=== PATIENT | male | born 1955 | race Asian ===

== ENCOUNTER → 2024-06-18 | Outpatient (CLI) | payer OTHER, SELFPAY ==
[2024-06-18 08:52] LABS: Glucose Estimated Average 186 mg/dL (80-131); Hemoglobin A1C 8.1 % Hgb (4.8-6.0)
[2024-06-18 08:56] LABS: Alanine Aminotransferase 69 U/L (10-49); Albumin, Serum 4.8 gm/dL (3.4-4.8); Albumin/Globulin Ratio 1.9 (1.2-2.2); Alkaline Phosphatase 64 U/L (46-116); Anion Gap 9 (7-16); Aspartate Amino Transferase 29 U/L (0-34); BUN/Creatinine Ratio 18 Ratio (12-20); Bilirubin,Total 0.7 mg/dL (0.3-1.2); Blood Urea Nitrogen 18 mg/dL (9-23); Calcium 9.8 mg/dL (8.3-10.6); Calcium (Corrected) 9.8 mg/dL (8.5-10.1); Carbon Dioxide 25.9 mMol/L (20.0-31.0); Cardiac Risk Estimate 2.1 RATIO (4.0-6.7); Chloride 102 mMol/L (98-107); Cholesterol 61 mg/dL (132-200); Globulin 2.5 gm/dL (2.3-3.5); Glucose 101 mg/dL (74-106); HDL Cholesterol 29 mg/dL (40-60); LDL Cholesterol,Calculated 3 mg/dL (0-130); Osmolality,Calculated 275 (275-295); Potassium 4.1 mMol/L (3.4-5.1); Sodium 137 mMol/L (136-145); Total Protein 7.3 gm/dL (5.7-8.2); Triglycerides 144 mg/dL (30-150); Uric Acid 6.1 mg/dL (3.7-9.2); eGFR > 60 See Note
== END | disposition home or self-care (01) ==
PROVIDERS: PCP Family Medicine; Referring Provider Family Medicine; Visit Provider Family Medicine
DX: E11.59 Type 2 diabetes mellitus with other circulatory complications (principal); E78.2 Mixed hyperlipidemia; E79.0 Hyperuricemia without signs of inflammatory arthritis and tophaceous disease; I10 Essential (primary) hypertension
CPT/HCPCS: 36415; 80053; 80061; 83036; 84550

== ENCOUNTER → 2024-11-27 | Outpatient (CLI) | payer OTHER, SELFPAY ==
[2024-11-27 09:05] LABS: Collection Type, Urine Clean Catch; Squamous Epithelial Cell,Urine 0 /hpf (0-5)
[2024-11-27 09:37] LABS: Basophils # (Auto) 0.1 Thou/mm3 (0.0-0.2); Basophils % (Auto) 1 % (0-2.5); Eosinophils # (Auto) 0.8 Thou/mm3 (0.0-0.5); Eosinophils % (Auto) 11 % (0-10); Hematocrit 45.9 % (41.0-53.0); Hemoglobin 15.5 g/dL (13.5-16.0); Immature Granulocytes % (Auto) 1 % (0-0); Immature Granulocytes Auto 0.06 Thou/mm3 (0.00-0.00); Lymphocytes % (Auto) 28 % (10-50); Mean Corpuscular HGB Conc 33.8 g/dl (31.0-37.0); Mean Corpuscular Hemoglobin 28.8 pg (25.0-35.0); Mean Corpuscular Volume 85 fL (80-100); Monocytes # (Auto) 0.6 Thou/mm3 (0.0-0.8); Monocytes % (Auto) 8 % (0-12); Neutrophils # (Auto) 3.6 Thou/mm3 (1.8-7.7); Neutrophils % (Auto) 50 % (37-80); Nucleated Red Blood Cell % 0 /100 WBC (0); Platelet Count 286 Thou/mm3 (140-440); RDW Standard Deviation 43.4 fL (35.1-43.9); Red Blood Count 5.38 Miln/mm3 (4.50-5.90); White Blood Count 7.1 Thou/mm3 (3.8-10.6)
[2024-11-27 09:55] LABS: Creatinine MALB Rnd Ur 67 mg/dL (30-125); Microalbumin Creat Ratio 12 mg/gCrea (<30); Microalbumin, Random Urine 8 mg/L (0-300)
[2024-11-27 10:00] LABS: Glucose Estimated Average 166 mg/dL (80-131); Hemoglobin A1C 7.4 % Hgb (4.8-6.0)
[2024-11-27 10:02] LABS: Bilirubin,Urine Negative (Negative); Blood,Urine Negative (Negative); Clarity,Urine Clear (Clear/Hazy); Color,Urine Lt-Yellow (Lt Yel-Yel); Glucose, Urine 4+ (Negative); Ketones,Urine Negative (Negative); Leukocyte Esterase,Urine Negative (Negative); Nitrite,Urine Negative (Negative); PH,Urine 5.5 (5.0-7.0); Protein,Urine Negative (Neg - Trace); RBC,Urine 2 /hpf (0-3); Urobilinogen,Urine Negative mg/dL (0.0-1.0); WBC,Urine 1 /hpf (0-5)
[2024-11-27 10:09] LABS: Alanine Aminotransferase 51 U/L (10-49); Albumin, Serum 4.5 gm/dL (3.4-4.8); Albumin/Globulin Ratio 1.7 (1.2-2.2); Alkaline Phosphatase 53 U/L (46-116); Anion Gap 11 (7-16); Aspartate Amino Transferase 44 U/L (0-34); BUN/Creatinine Ratio 23 Ratio (12-20); Bilirubin,Total 0.5 mg/dL (0.3-1.2); Blood Urea Nitrogen 25 mg/dL (9-23); Cardiac Risk Estimate 2.1 RATIO (4.0-6.7); Chloride 104 mMol/L (98-107); Cholesterol 79 mg/dL (132-200); Creatinine (Component) 1.1 mg/dL (0.6-1.3); Globulin 2.7 gm/dL (2.3-3.5); Glucose 87 mg/dL (74-106); HDL Cholesterol 38 mg/dL (40-60); LDL Cholesterol,Calculated 20 mg/dL (0-130); Osmolality,Calculated 282 (275-295); Potassium 5.1 mMol/L (3.4-5.1); Sodium 140 mMol/L (136-145); Thyroid Stimulating Hormone 3.14 uIU/mL (0.55-4.78); Total Protein 7.2 gm/dL (5.7-8.2); Triglycerides 104 mg/dL (30-150); Uric Acid 4.4 mg/dL (3.7-9.2); eGFR > 60 See Note
== END | disposition home or self-care (01) ==
PROVIDERS: PCP Family Medicine; Referring Provider Family Medicine; Visit Provider Family Medicine
DX: Z00.00 Encounter for general adult medical examination without abnormal findings (principal); E11.65 Type 2 diabetes mellitus with hyperglycemia; I10 Essential (primary) hypertension; E78.2 Mixed hyperlipidemia; E79.0 Hyperuricemia without signs of inflammatory arthritis and tophaceous disease
CPT/HCPCS: 36415; 80053; 80061; 81001; 82043; 82570; 83036; 84443; 84550; 85025

== ENCOUNTER → 2024-12-18 | Outpatient (CLI) | payer OTHER, SELFPAY ==
--- NOTE | 2024-12-18 12:20 | XR_ITS ---
Examination: Bone densitometry Date and time of exam:December 18, 2024 1244 hours INDICATIONS: 69-year-old male with diagnosis age related osteoporosis Technique: Lumbar spine and hip total bone mineralization values of an calculated. Peak reference and age match control results have been displayed. Findings: Lumbar spine total bone mineralization is1.086 gm/cm2. This is 0.0 standard deviations at peak reference. This is 0.8 standard deviations above age-matched controls. Hip total bone mineralization is 0.959 gm/cm2 This is 0.7 standard deviations below peak reference. This is 0.1 standard deviations below age-matched controls Impression: There is normal mineralization based on lumbar spine measurements. There is osteopenia based on hip measurements Lumbar mineralization is increased 2.0% compared with August 2022 Hip mineralization is increased 2.4% compared with August 2022
== END | disposition home or self-care (01) ==
LOC: CDIM 12:11
PROVIDERS: PCP Family Medicine; Referring Provider Family Medicine; Visit Provider Family Medicine
DX: M85.88 Other specified disorders of bone density and structure, other site (principal); M81.0 Age-related osteoporosis without current pathological fracture
CPT/HCPCS: 77080

== ENCOUNTER → 2025-03-30 | Outpatient (CLI) | payer OTHER, SELFPAY ==
[2025-03-30 08:52] LABS: Glucose Estimated Average 177 mg/dL (80-131); Hemoglobin A1C 7.8 % Hgb (4.8-6.0)
[2025-03-30 09:06] LABS: Alanine Aminotransferase 39 U/L (10-49); Albumin, Serum 4.4 gm/dL (3.4-4.8); Albumin/Globulin Ratio 1.5 (1.2-2.2); Alkaline Phosphatase 51 U/L (46-116); Anion Gap 10 (7-16); Aspartate Amino Transferase 32 U/L (0-34); BUN/Creatinine Ratio 16 Ratio (12-20); Bilirubin,Total 0.7 mg/dL (0.3-1.2); Blood Urea Nitrogen 19 mg/dL (9-23); Calcium 10.0 mg/dL (8.3-10.6); Calcium (Corrected) 10.0 mg/dL (8.5-10.1); Carbon Dioxide 27.0 mMol/L (20.0-31.0); Cardiac Risk Estimate 2.3 RATIO (4.0-6.7); Chloride 102 mMol/L (98-107); Cholesterol 73 mg/dL (132-200); Creatinine (Component) 1.2 mg/dL (0.6-1.3); Globulin 2.9 gm/dL (2.3-3.5); Glucose 83 mg/dL (74-106); HDL Cholesterol 32 mg/dL (40-60); LDL Cholesterol,Calculated 13 mg/dL (0-130); Osmolality,Calculated 278 (275-295); Potassium 4.2 mMol/L (3.4-5.1); Sodium 139 mMol/L (136-145); Total Protein 7.3 gm/dL (5.7-8.2); Triglycerides 141 mg/dL (30-150); Uric Acid 4.9 mg/dL (3.7-9.2); eGFR > 60 See Note
== END | disposition home or self-care (01) ==
LOC: COPL 07:38
PROVIDERS: PCP Family Medicine; Referring Provider Family Medicine; Visit Provider Family Medicine
DX: E11.59 Type 2 diabetes mellitus with other circulatory complications (principal); E78.2 Mixed hyperlipidemia; I10 Essential (primary) hypertension; E79.0 Hyperuricemia without signs of inflammatory arthritis and tophaceous disease
CPT/HCPCS: 36415; 80053; 80061; 83036; 84550

== ENCOUNTER 2025-06-19 02:07 | Inpatient (IN) | payer OTHER, MEDICARE, SELFPAY ==
[2025-06-19] VITALS (8 sets, daily range): BP systolic 101–115; BP diastolic 53–72; PULSE 74–103; RESP 16–20; TEMP 36.3–37.1; O2SAT 95–98; BMI 25.8; BMI 26.9
--- NOTE | 2025-06-19 02:08 | PD.EDABDPN ---
ED Abdominal Pain RME/HPI General Chief Complaint: Abdominal Pain Stated complaint: ABDOMINAL PAIN Time seen by provider: 06/19/25 02:23 Arrival date/time: 06/19/25 02:07 RME / HPI RME / HPI narrative: See MDM for Dr. Santo's HPI documentation. Related Data Home Medications ?Medication ?Instructions ?Recorded ?Confirmed ascorbic acid (vitamin C) 1,000 mg 1,000 mg PO DAILY 09/22/20 06/19/25 tablet (Vitamin C) metformin 1,000 mg tablet 1,000 mg PO BID 09/22/20 06/19/25 sitagliptin phosphate 100 mg 100 mg PO HS 09/22/20 04/09/23 tablet (Januvia) atorvastatin 80 mg tablet 80 mg PO HS 10/27/20 06/19/25 insulin glargine 100 unit/mL 15 unit subcut QAM 10/27/20 06/19/25 subcutaneous solution (Lantus U-100 Insulin) alendronate 70 mg tablet 70 mg PO QWEEK 04/09/23 06/19/25 allopurinol 100 mg tablet 200 mg PO QDAY 04/09/23 06/19/25 hydroxyzine HCl 25 mg tablet 25 mg PO [id number] PRN Itching 04/09/23 06/19/25 loratadine 10 mg tablet 10 mg PO QDAY 04/09/23 06/19/25 acetaminophen 325 mg tablet 650 mg PO Q4H PRN pain 06/19/25 06/19/25 (Tylenol) calcium carb-ergocalciferol (vit 1 tab PO BID 06/19/25 06/19/25 D2) 600 mg calcium-200 unit tablet dapagliflozin propanediol 10 mg 10 mg PO DAILY 06/19/25 06/19/25 tablet (Farxiga) dulaglutide 1.5 mg/0.5 mL 1.5 mg subcut QWEEK 06/19/25 06/19/25 subcutaneous pen injector (Trulicity) insulin degludec 200 unit/mL (3 18 unit subcut DAILY 06/19/25 06/19/25 mL) subcutaneous pen (Tresiba FlexTouch U-200 insulin) pioglitazone 30 mg tablet 30 mg PO DAILY 06/19/25 06/19/25 rosuvastatin 40 mg tablet 40 mg PO HS 06/19/25 06/19/25 triamcinolone acetonide 0.5 % 1 applic topical BID 06/19/25 06/19/25 topical ointment Previous Rx's ?Medication ?Instructions ?Recorded apixaban 5 mg tablet (Eliquis) 5 mg PO BID #60 tabs 09/27/20 Allergies Allergy/AdvReac Type Severity Reaction Status Date / Time adhesive tape AdvReac Mild Rash Verified 06/19/25 02:14 latex AdvReac Mild Rash Verified 06/19/25 02:14 Review of Systems Review of Systems Systems Reviewed: All systems reviewed, normal except as documented ED Exam Narrative Physical exam: See MDM for Dr. Santo's physical exam documentation. Course Quality Measures none Orders Category Date Time Status COVID-19 Screening Questionnaire NOW Care 06/19/25 05:06 Active Decision to Admit X1 Care 06/19/25 05:06 Completed NPO NOW Care 06/19/25 05:04 Active Saline [Insert IV] NOW Care 06/19/25 02:13 Active Straight [In and Out Catheter] X1 Care 06/19/25 02:13 Completed Consult to General Surgery Stat Cons 06/19/25 05:03 Ordered Diet NPO (NOW) Diet 06/19/25 05:[address] abdomen pelvis wo con Stat Exams 06/19/25 02:14 Taken US gall bladder Stat Exams 06/19/25 02:14 Taken Amylase Stat Lab 06/19/25 02:24 Completed Bilirubin,Direct Stat Lab 06/19/25 02:24 Completed Blood Culture (Lab) Stat Lab 06/19/25 05:14 Ordered CBC Stat Lab 06/19/25 02:24 Completed CMP [Comprehensive Metabolic Panel] Stat Lab 06/19/25 02:24 Completed Hepatitis Acute Panel Stat Lab 06/19/25 04:09 Ordered Lipase Stat Lab 06/19/25 02:24 Completed Magnesium Stat Lab 06/19/25 02:24 Completed UA, C/S IF [Urinalysis, C/S if Indicated] Stat Lab 06/19/25 04:19 Completed Famotidine Inj [Pepcid Inj] Med 06/19/25 02:13 Discontinued 20 mg IVP X1 ONE Morphine* Inj Med 06/19/25 04:59 Discontinued 4 mg IV X1 ONE Ondansetron Inj [Zofran Inj] Med 06/19/25 02:13 Discontinued 4 mg IVP X1 ONE Pantoprazole Inj [Protonix Inj] Med 06/19/25 02:13 Discontinued 40 mg IVP X1 ONE Sodium Chloride 0.9% 1000 ml [Ns] 1,000 ml Med 06/19/25 02:13 Discontinued IV 999 mls/hr cefTRIAXone/D5w 1gm IV premix [Rocephin/D5w 1gm IV Med 06/19/25 05:04 Discontinued premix] 1 g in 50 ml IV X1 metroNIDAZOLE/NS 500 MG IVPB [Flagyl 500 mg IV] Med 06/19/25 05:04 Active 500 mg in 100 ml IV X1 Vital Signs Vital signs: Vital Signs Temperature 98.3 F 06/19/25 02:15 Pulse Rate 86 06/19/25 02:15 Respiratory Rate 18 06/19/25 02:15 Blood Pressure 102/53 L 06/19/25 02:15 Pulse Oximetry (%) 98 06/19/25 02:15 Oxygen Delivery Method Room Air 06/19/25 02:15 Abdominal Pain MDM MDM Narrative MDM Narrative:: This section includes all my notes and documentations, including HPI, PE, and ED course. Henrry Santo MD HPI: 70-year-old male with history of CVA with residual left-sided weakness BIBA from home with sudden epigastric pain x 1 hour [employer]. With severe nausea. Had appendectomy in the past. No fever. No urinary symptoms. No other complaints. ROS: All negative except as documented in HPI. Physical Exam: General: Alert and oriented. Appears uncomfortable. Eyes: Conjunctivae and lids clear. ENT: No nasal congestion. Neck: Supple. Heart: RRR. Lungs: No respiratory distress. Good air movement. No rhonchi, wheezing, rales. Abdomen: Soft with upper quadrant tenderness. Normal bowel sounds. No distension. No rebound or guarding. Back: No CVA tenderness. Skin: Warm and dry. Neuro: Alert and oriented X 3. I reviewed EMS notes. I reviewed all diagnostic test results. My review of the US gallbladder report is cholecystitis. My review of the CT abdomen pelvis report is cholecystitis. Blood/urine tests remarkable for WBC 12.3 and LFT elevation. At this point, diagnoses include: Acute cholecystitis Treatment here included: IVF Zofran 4 mg IV Pepcid 20 mg and Protonix 40 mg IV (prior to diagnostic test results) Morphine 4 mg IV Flagyl 500 mg IV Rocephin 1 g IV Some improvement noted. I discussed the case with our surgeon and hospitalist. About the presentation and exam and diagnostics and treatments here. And need of further care in the hospital. Will accept the patient. Henrry Santo MD Patient data External records reviewed:: [facility] previous records (Per chart review, patient was seen here on 06/26/23 for generalized weakness.) and EMS form Clinical information provided by:: patient and EMS Social determinants that could affect healthcare access:: none Patient has the following chronic illnesses:: CVA with residual left-sided weakness, DM, HTN, HLD How is presenting disease/condition affected by chronic disease/condition?: uneffected by Evaluation data The following diagnostics were reviewed and interpreted by me:: lab results and radiology exam(s) Lab and/or radiology exams considered but not ordered:: none Interpretation Summary: I reviewed all diagnostic test results. My review of the US gallbladder report is cholecystitis. My review of the CT abdomen pelvis report is cholecystitis. Blood/urine tests remarkable for WBC 12.3 and LFT elevation. Medications / Prescriptions Medications or Prescriptions considered but not ordered:: none Medication administrations:: Medication Administration History Metronidazole (Flagyl 500 Mg Iv) 500 mg in 100 mls @ 100 mls/hr IV X1 ONE Stop: 06/19/25 06:03 Last Admin: 06/19/25 05:25 Dose: 100 mls/hr Documented By: OTTO Discontinued Medications Famotidine (Famotidine Inj 10 Mg/Ml Vial 2 Ml) 20 mg IVP X1 ONE Stop: 06/19/25 02:14 Last Admin: 06/19/25 02:30 Dose: 20 mg Documented By: OTTO Sodium Chloride (Ns) 1,000 mls @ 999 mls/hr IV .Q1H1M ONE Stop: 06/19/25 03:13 Last Infusion: 06/19/25 05:07 Dose: Infused Documented By: Admin: 06/19/25 02:29 Dose: 999 mls/hr Documented By: OTTO Ceftriaxone Sodium/Dextrose (Rocephin/D5w 1gm Iv Premix) 1 g in 50 mls @ 100 mls/hr IV X1 ONE Stop: 06/19/25 05:33 Last Admin: 06/19/25 05:20 Dose: 100 mls/hr Documented By: EE Morphine Sulfate (Morphine Sulf Inj 4 Mg/Ml Vial) 4 mg IV X1 ONE Stop: 06/19/25 05:00 Last Admin: 06/19/25 05:20 Dose: 4 mg Documented By: EE Ondansetron HCl (Ondansetron Inj 2 Mg/Ml Inj 2 Ml) 4 mg IVP X1 ONE; Protocol Stop: 06/19/25 02:14 Last Admin: 06/19/25 02:30 Dose: 4 mg Documented By: EE Pantoprazole Sodium (Pantoprazole Inj 40 Mg Vial) 40 mg IVP X1 ONE Stop: 06/19/25 02:14 Last Admin: 06/19/25 02:30 Dose: 40 mg Documented By: EE Treatment here included: IVF Zofran 4 mg IV Pepcid 20 mg and Protonix 40 mg IV (prior to diagnostic test results) Morphine 4 mg IV Flagyl 500 mg IV Rocephin 1 g IV Consultations Consultation(s) initiated? (list below): Yes Consultation #1 (Physician, Specialty, Details): I discussed the case with our surgeon and hospitalist. About the presentation and exam and diagnostics and treatments here. And need of further care in the hospital. Will accept the patient. Diagnosis Differential diagnosis abdominal pain: calculus of kidney, constipation, diverticulitis, gastroenteritis, pancreatitis, small bowel obstruction and other (Biliary colic) Most likely diagnosis given after review of the tests above:: Acute cholecystitis Admission Indicated Admission indicated?: indicated Explain why admission is indicated or not indicated:: Acute cholecystitis Admission Request Was there a request for admission?: Yes Admission Attestation Admission request attestation: Discussed case with Hospitalist service regarding admission. Discussed patients ED course, exam findings, labs, and radiology results. Agreed to accept the patient for admission. Disposition Plan Disposition Plan: Admit Discharge Plan Plan Patient Disposition: Admit Acute Care w/in Hospital Prescriptions/Referrals Prescriptions/Med Rec: No Action Januvia 100 mg Tablet 100 mg PO HS metformin 1,000 mg Tablet 1,000 mg PO BID ascorbic acid (vitamin C) [Vitamin C] 1,000 mg Tablet 1,000 mg PO DAILY Eliquis 5 mg tablet 5 mg PO BID Qty: 60 0RF atorvastatin 80 mg Tablet 80 mg PO HS insulin glargine [Lantus U-100 Insulin] 100 unit/mL Solution 15 unit SUBCUT QAM hydroxyzine HCl 25 mg tablet 25 mg PO [id number] PRN (Reason: Itching) Patient Comments: TAKE 1 TABLET BY MOUTH EVERY 6 TO 8 HOURS FOR RASH/ITCHING loratadine 10 mg Tablet 10 mg PO QDAY alendronate 70 mg Tablet 70 mg PO QWEEK allopurinol 100 mg tablet 200 mg PO QDAY rosuvastatin 40 mg tablet 40 mg PO HS dapagliflozin propanediol [Farxiga] 10 mg tablet 10 mg PO DAILY Trulicity 1.5 mg/0.5 mL pen injector 1.5 mg SUBCUT QWEEK pioglitazone 30 mg tablet 30 mg PO DAILY triamcinolone acetonide 0.5 % ointment 1 applic TOPICAL BID Patient Comments: APPLY OINTMENT TOPICALLY TO AFFECTED AREA TWICE DAILY insulin degludec [Tresiba FlexTouch U-200] 200 unit/mL (3 mL) insulin pen 18 unit SUBCUT DAILY calcium carbonate-vitamin D2 600 mg calcium- 200 unit tablet 1 tab PO BID acetaminophen [Tylenol] 325 mg tablet 650 mg PO Q4H PRN (Reason: pain) Referrals: Sin [facility] MD [Primary Care Provider, Family Practice] - In 1 week Problem List Clinical Impression: Acute cholecystitis Patient/Caregiver Discharge Instructions Print Language: Serbian Stand Alone Forms: Catarina Award Info., Patient Portal Info Letter
--- NOTE | 2025-06-19 02:14 | XR_ITS ---
Examination: Abdomen sonogram, Limited Date and time of exam: June 19, 2025, 0401 hours INDICATIONS: Right upper abdominal pain beginning 10:30 p.m. last night. Technique: Real-time gorman scale transabdominal sonographic images of the upper abdomen obtained. Findings: Small gallstones Gallbladder wall is thickened 0.6 cm Common bile duct 0.4 cm Pancreatic head 2.7 cm Liver 16 cm fatty infiltration Normal hepatopetal portal venous flow Patent IVC IMPRESSION: Acute calculus cholecystitis
--- NOTE | 2025-06-19 02:14 | XR_ITS ---
Examination: CT abdomen and pelvis without contrast. Coronal 3-D reconstructions. Sagittal 2-D reconstructions. Date and time of exam: June 19, 2025, 1507 hours INDICATIONS: Epigastric pain beginning 1 day ago CTDI: vol (mGy): 14.3 DLP: (mGycm): 903 Technique: Axial images of the abdomen have been obtained, 3 mm slice thickness Intravenous contrast material has not been administered. Low dose protocols were performed. One or more of the following dose reduction techniques were used; automated exposure control, adjustment of the mA and/or KV according to patient size, use of iterative reconstruction technique. Findings: Bibasilar subsegmental atelectasis No focal liver or splenic lesions Gallstones Gallbladder wall appears thickened with pericholecystic inflammatory change No pancreatic or adrenal mass Mild renal scarring Small calcifications left kidney No hydronephrosis or ureteral calculi No pericecal inflammatory change Moderate stool in the rectosigmoid Transverse prostate dimension 4.7 cm Contracted urinary bladder Prominent osteopenia IMPRESSION: Cholelithiasis Recommend hepatobiliary sonography to confirm cholecystitis
[2025-06-19] MEDS: SODIUM CHLORIDE 0.9% 1000 ML 1,000 ML 999 ML IV (02:29)
[2025-06-19] MEDS: FAMOTIDINE INJ 10 MG/ML VIAL 2 ML 20 MG IVP (02:30)
[2025-06-19] MEDS: ONDANSETRON INJ 2 MG/ML INJ 2 ML 4 MG IVP (02:30)
[2025-06-19 03:51] LABS: Basophils # (Auto) 0.1 Thou/mm3 (0.0-0.2); Basophils % (Auto) 1 % (0-2.5); Eosinophils # (Auto) 0.4 Thou/mm3 (0.0-0.5); Eosinophils % (Auto) 3 % (0-10); Hematocrit 46.5 % (41.0-53.0); Hemoglobin 15.1 g/dL (13.5-16.0); Immature Granulocytes Auto 0.06 Thou/mm3 (0.00-0.00); Lymphocytes # (Auto) 2.6 Thou/mm3 (1.0-4.8); Lymphocytes % (Auto) 22 % (10-50); Mean Corpuscular HGB Conc 32.5 g/dl (31.0-37.0); Mean Corpuscular Hemoglobin 28.4 pg (25.0-35.0); Mean Corpuscular Volume 88 fL (80-100); Monocytes # (Auto) 0.9 Thou/mm3 (0.0-0.8); Monocytes % (Auto) 7 % (0-12); Neutrophils # (Auto) 8.2 Thou/mm3 (1.8-7.7); Neutrophils % (Auto) 67 % (37-80); Nucleated Red Blood Cell # 0.00 Thou/mm3 (0.00-0.00); Nucleated Red Blood Cell % 0 /100 WBC (0); Platelet Count 312 Thou/mm3 (140-440); RDW Standard Deviation 45.5 fL (35.1-43.9); Red Blood Count 5.31 Miln/mm3 (4.50-5.90); White Blood Count 12.3 Thou/mm3 (3.8-10.6)
[2025-06-19 04:03] LABS: Alanine Aminotransferase 489 U/L (10-49); Albumin, Serum 4.5 gm/dL (3.4-4.8); Albumin/Globulin Ratio 1.5 (1.2-2.2); Alkaline Phosphatase 159 U/L (46-116); Amylase 203 U/L (30-118); Anion Gap 14 (7-16); Aspartate Amino Transferase 234 U/L (0-34); BUN/Creatinine Ratio 11 Ratio (12-20); Bilirubin,Direct 0.3 mg/dL (0.0-0.3); Bilirubin,Total 0.6 mg/dL (0.3-1.2); Blood Urea Nitrogen 16 mg/dL (9-23); Calcium 9.5 mg/dL (8.3-10.6); Calcium (Corrected) 9.5 mg/dL (8.5-10.1); Carbon Dioxide 24.2 mMol/L (20.0-31.0); Chloride 103 mMol/L (98-107); Creatinine (Component) 1.5 mg/dL (0.6-1.3); Estimated Creatinine Clearance 45.8 mL/min (>60); Globulin 3.1 gm/dL (2.3-3.5); Glucose 217 mg/dL (74-106); Lipase 63 U/L (12-53); Magnesium 2.0 mg/dL (1.6-2.6); Osmolality,Calculated 289 (275-295); Potassium 4.5 mMol/L (3.4-5.1); Sodium 141 mMol/L (136-145); Total Protein 7.6 gm/dL (5.7-8.2); eGFR 50 See Note
--- NOTE | 2025-06-19 04:13 | PRELIM_ITS ---
CT scan of the abdomen and pelvis without intravenous contrast (axial sections with sagittal and coronal reformats) June 19, 2025 0307 hours Clinical History: Upper abdominal pain Comparison: None available at the time of this report. Findings: Bilateral lower lobes atelectasis. The liver, pancreas, spleen, kidneys and adrenals are unremarkable on this noncontrast study. Gallstones. Gallbladder wall thickening. Pericholecystic fat stranding. No evidence of bowel obstruction. No evidence of appendicitis. There is no mesenteric or retroperitoneal adenopathy. The urinary bladder is unremarkable. There is no free fluid or free air. Degenerative changes of the imaged portions of the spine. Chronic multilevel disc disease. No acute fractures. Vascular calcifications. Impression: Findings are highly suspicious for acute calculous cholecystitis. Report Electronically Signed By: Elpidio Fagan 06/19/2025 4:13:00 AM [EST]
[2025-06-19 04:48] LABS: Collection Type, Urine Clean Catch
[2025-06-19 05:03] LABS: Bilirubin,Urine Negative (Negative); Blood,Urine Negative (Negative); Clarity,Urine Clear (Clear/Hazy); Color,Urine Lt-Yellow (Lt Yel-Yel); Culture Indicated,Urine Not Indicated; Glucose, Urine 4+ (Negative); Ketones,Urine Trace (Negative); Leukocyte Esterase,Urine Negative (Negative); Nitrite,Urine Negative (Negative); PH,Urine 6.0 (5.0-7.0); Protein,Urine Trace (Neg - Trace); RBC,Urine 1 /hpf (0-3); Specific Gravity,Urine 1.027 (1.001-1.035); Squamous Epithelial Cell,Urine < 1 /hpf (0-5); Urobilinogen,Urine Negative mg/dL (0.0-1.0); WBC,Urine 1 /hpf (0-5)
[2025-06-19] MEDS: cefTRIAXone/D5w 1gm IV premix 1 G/50 ML BAG IV (05:20)
[2025-06-19] MEDS: MORPHINE SULF INJ 4 MG/ML VIAL IV (05:20)
[2025-06-19] MEDS: metroNIDAZOLE/NS 500 MG IVPB 500 MG/100 ML BAG 100 MG IV (05:25)
--- NOTE | 2025-06-19 05:26 | PRELIM_ITS ---
Gallbladder ultrasound. June 19, 2025 0401 hours Clinical history: Right upper quadrant tenderness. Comparison: Correlated with the prior CT study dated June 19, 2025. Findings: The visualized liver is increased in echogenicity without mass or ductal dilatation. Liver is enlarged measuring 16 cm. Left lobe of liver is not well visualized due to bowel gas. A few possible tiny calculi are noted within the gallbladder neck, with gallbladder wall thickening measuring 6 mm and no p ericholecystic fluid. The common duct is normal in caliber at 4 mm. No free fluid is demonstrated on the submitted images. Impression: Findings consistent with acute cholecystitis. Hepatomegaly with fatty liver. Report Electronically Signed By: Gustavo Tolliver 06/19/2025 5:25:56 AM [EST]
--- NOTE | 2025-06-19 05:57 | ESHP_ITS ---
Documentation for date of: 06/19/25 [facility] History of Present Illness History of present illness: HPI: 70-year-old male with past medical history of hypertension, hyperlipidemia, embolic stroke with left-sided residual weakness in 2020, left atrial appendage thrombus, and PFO presented to the ED in the plate cleaner of 06/19/2025 with chief complaint of midepigastric and right upper quadrant pain. Started around 11 PM the night before after the patient ate dinner and he described it as constant pressure and aching. The pain is not radiating and he denied nausea vomiting or diarrhea. He was found to have acute calculous cholecystitis on abdominal CT with gallbladder wall thickening. AST and ALT were elevated as well as alk phos, lipase and amylase. T. bili was normal. Surgery was consulted and the patient was started on antibiotics and given morphine for pain. Patient was admitted for acute calculous cholecystitis. ED Course: * Significant vitals on arrival: BP 102/53, remainder vitals within normal parameters * Significant labs: WBC 12.3, creatinine 1.5, glucose 217, AST 234, ALT 489, alk phos 159, amylase 203, lipase 63 * Imaging: CTAP showed acute calculous cholecystitis with gallbladder wall thickening. Gallbladder ultrasound pending official read. * Urine: 4+ glucose * ED intervention: Patient received a liter of fluids, 20 mg IV famotidine, 40 mg pantoprazole IV, 4 mg ondansetron IV, 4 mg morphine IV, 1 g of ceftriaxone, and 5 mg of metronidazole. History: * Past medical history: As above in HPI * Surgical history: Remote history of appendectomy, otherwise noncontributory * Social history: Denies alcohol tobacco or illicit drug use Allergies: * Latex, adhesive * No known drug allergies. Home Medications: (Pending Med Rec) * Eliquis 5 mg twice a day * Rosuvastatin 40 mg nightly * Allopurinol 100 mg 2 tablets daily * Calcium carbonate * Farxiga 10 mg daily * Trulicity 1.5 mg subcutaneous weekly * Hydroxyzine 25 mg every 6 hours as needed for itching * Insulin degludec 18 units subcu daily * [id number] mg as needed for pain * Loratadine 10 mg daily for allergies * Vitamin C supplement CODE STATUS: Full Code Review of Systems Review of Systems Narrative Review of Systems: Review of Systems: * General: Denies fevers, chills. * HEENT: Denies headache, congestion, or sore throat. * Cardiac: Denies chest pain or palpitations. * Pulmonary: Denies shortness of breath or cough. * GI: Constant dull aching right upper quadrant and mid epigastric pain for the past 8 hours. Denies nausea, vomiting, diarrhea, constipation, melena, or hematochezia. * : Denies dysuria, hematuria, frequency, or urgency. * MSK: Denies pain in the extremities, joints, or myalgias. * Neuro: Residual left sided weakness from previous stroke. Denies numbness, vision changes, or speech difficulty. Exam Vital Signs Temp Pulse Resp BP Pulse Ox O2 Del Method 98.1 F 97 18 101/72 98 Room Air 06/19/25 05:25 06/19/25 05:25 06/19/25 05:25 06/19/25 05:25 06/19/25 05:25 06/19/25 05:25 Narrative Exam General: Awake and in no acute distress. Conversational and non-toxic appearing. Neurologic: GCS 15. Alert and oriented x3, patient able to move all 4 extremities. HEENT: Normocephalic, atraumatic, mucous membranes moist. Pupils reactive to light. Heart: Regular rate and rhythm, normal S1 and S2, no murmurs. Lungs: Clear to auscultation bilaterally with no wheezing or crackles. Abdomen: Midepigastric and right upper quadrant pain on palpation, positive Middleton's sign. Nondistended. No guarding or rebound tenderness. Extremities: 4 out of 5 strength in the left upper and lower extremity. No edema. 2+ radial and dorsalis pedis pulses bilaterally. Skin: Warm. Dry. No rash or ecchymoses. Results: Labs 06/20/25 04:38 06/20/25 04:38 Labs: Short CBC 06/19/25 Range/Units 02:24 WBC 12.3 H (3.8-10.6) Thou/mm3 Hgb 15.1 (13.5-16.0) g/dL Hct 46.5 (41.0-53.0) % Plt Count 312 (140-440) Thou/mm3 BMP 06/19/25 02:24 Sodium 141 Potassium 4.5 Chloride 103 Carbon Dioxide 24.2 BUN 16 Creatinine 1.5 H Glucose 217 H Calcium 9.5 Liver Function 06/19/25 Range/Units 02:24 Total Bilirubin 0.6 (0.3-1.2) mg/dL Direct Bilirubin 0.3 (0.0-0.3) mg/dL AST 234 H (0-34) U/L ALT 489 H (10-49) U/L Alkaline Phosphatase 159 H (46-116) U/L Albumin 4.5 (3.4-4.8) gm/dL Urine 06/19/25 Range/Units 04:19 Urine Color Lt-Yellow (Lt Yel-Yel) Urine Clarity Clear (Clear/Hazy) Urine pH 6.0 (5.0-7.0) Ur Specific [place] 1.027 (1.001-1.035) Urine Protein Trace (Neg - Trace) Urine Glucose (UA) 4+ A (Negative) Quality Measures Quality Measures VTE prophylaxis Advance care planning discussed with:: patient Medications Home Medications and Allergies Home Medications ?Medication ?Instructions ?Recorded ?Confirmed ?Type ascorbic acid (vitamin C) 1,000 mg 1,000 mg PO DAILY 0 09/22/20 06/19/25 History tablet (Vitamin C) metformin 1,000 mg tablet 1,000 mg PO BID 09/22/2007/02 History sitagliptin phosphate 100 mg 100 mg PO HS 09/22/2007/02 History tablet (Januvia) atorvastatin 80 mg tablet 80 mg PO HS 10/27/20 5 History insulin glargine 100 unit/mL 15 unit subcut QAM 06/19/25 History subcutaneous solution (Lantus U-100 Insulin) alendronate 70 mg tablet 70 mg PO QWEEK 04/09/2306/08 History allopurinol 100 mg tablet 200 mg PO QDAY 04/09/2306/08 History hydroxyzine HCl 25 mg tablet 25 mg PO [id number] PRN Itch ing 04/09/23 06/19/25 History loratadine 10 mg tablet 10 mg PO QDAY 04/09/2306/19 History acetaminophen 325 mg tablet 650 mg PO Q4H PRN pain 07/0206/19/25 History (Tylenol) calcium carb-ergocalciferol (vit 1 tab PO BID 06/19/25 06/19/25 History D2) 600 mg calcium-200 unit tablet dapagliflozin propanediol 10 mg 10 mg PO DAILY 5 06/19/25 History tablet (Farxiga) dulaglutide 1.5 mg/0.5 mL 1.5 mg subcut QWEEK 06/19/25 06/19/25 History subcutaneous pen injector (Trulicity) insulin degludec 200 unit/mL (3 18 unit subcut DAILY 1 08/20/24 06/19/25 History mL) subcutaneous pen (Tresiba FlexTouch U-200 insulin) pioglitazone 30 mg tablet 30 mg PO DAILY 06/19/2506/08 History rosuvastatin 40 mg tablet 40 mg PO HS 06/19/25 5 History triamcinolone acetonide 0.5 % 1 applic topical BID 07/0206/19/25 History topical ointment Allergies Allergy/AdvReac Type Severity Reaction Status Date / Time adhesive tape AdvReac Mild Rash Verified 06/19/25 02:14 latex AdvReac Mild Rash Verified 06/19/25 02:14 Visit Medications Allopurinol (Allopurinol 100 Mg Tablet) 200 mg PO DAILY DAREN Stop: 07/20/25 08:59 Atorvastatin Calcium (Atorvastatin Calcium 10 Mg Tablet) 40 mg PO HS DAREN Stop: 07/19/25 20:59 Metronidazole (Flagyl 500 Mg Iv) 500 mg in 100 mls @ 100 mls/hr IV X1 ONE Stop: 06/19/25 06:03 Last Admin: 06/19/25 05:25 Dose: 100 mls/hr Cefoxitin Sodium 2 gm/ Sodium (Chloride) 50 mls @ 100 mls/hr IV Q8HR DAREN Stop: 06/26/25 05:59 Morphine Sulfate (Morphine Sulf Inj 4 Mg/Ml Vial) 4 mg IVP Q4HR PRN PRN Reason: PAIN SCALE 4-10(Mod-Sev Stop: 06/24/25 10:29 Discontinued Medications Famotidine (Famotidine Inj 10 Mg/Ml Vial 2 Ml) 20 mg IVP X1 ONE Stop: 06/19/25 02:14 Last Admin: 06/19/25 02:30 Dose: 20 mg Sodium Chloride (Ns) 1,000 mls @ 999 mls/hr IV .Q1H1M ONE Stop: 06/19/25 03:13 Last Infusion: 06/19/25 05:07 Dose: Infused Ceftriaxone Sodium/Dextrose (Rocephin/D5w 1gm Iv Premix) 1 g in 50 mls @ 100 mls/hr IV X1 ONE Stop: 06/19/25 05:33 Last Admin: 06/19/25 05:20 Dose: 100 mls/hr Morphine Sulfate (Morphine Sulf Inj 4 Mg/Ml Vial) 4 mg IV X1 ONE Stop: 06/19/25 05:00 Last Admin: 06/19/25 05:20 Dose: 4 mg Ondansetron HCl (Ondansetron Inj 2 Mg/Ml Inj 2 Ml) 4 mg IVP X1 ONE; Protocol Stop: 06/19/25 02:14 Last Admin: 06/19/25 02:30 Dose: 4 mg Pantoprazole Sodium (Pantoprazole Inj 40 Mg Vial) 40 mg IVP X1 ONE Stop: 06/19/25 02:14 Last Admin: 06/19/25 02:30 Dose: 40 mg Assessment & Plan Plan Summary: 70-year-old male with past medical history of hypertension, hyperlipidemia, embolic stroke with left-sided residual weakness in 2020, left atrial appendage thrombus, and PFO presented to the ED in the plate cleaner of 06/19/2025 with chief complaint of midepigastric and right upper quadrant pain. He was found to have acute calculous cholecystitis on abdominal CT with gallbladder wall thickening. Patient was admitted for acute calculous cholecystitis. #Acute calculous cholecystitis #Leukocytosis * Patient presented with midepigastric and right upper quadrant pain after eating dinner * T. bili normal, makes choledocholithiasis or ascending cholangitis less likely * Patient is afebrile and not encephalopathic * AST 234, ALT 489 * WBC 12.3 likely secondary to infection versus acute phase Plan: * Surgery consulted * Cefoxitin 2 g every 8 hours * Holding anticoagulation until evening after surgery * Morphine 4 mg IV every 4 hours as needed for pain #History of embolic strokes * Brain MRI on 09/25/2020 showed multiple small infarcts in the right occipital lobe and right temporal lobes * Patient has residual left-sided weakness * TRENT on 09/27/2020 showed small left atrial appendage thrombus and patent foramen ovale Plan: * Holding anticoagulation until after surgery #Insulin-dependent diabetes mellitus #Hyperglycemia * Patient presented with a glucose of 217 * Takes short and long-acting insulin as well as Farxiga, pioglitazone at home * A1c of 7.8 on 03/30/2025 Plan: * Insulin sliding scale #CHARITY * Creatinine of 1.5, BUN 16 * May be secondary to dehydration versus hypotension * Patient received a liter of fluid in the ED Plan: * Will continue to monitor Hospital Maintenance: DVT ppx: SCDs Diet: N.p.o. IV lines: Peripheral IVs Code status: Full code Dispo: MedSurg, started on cefoxitin and surgery consulted for acute calculous cholecystitis. Patient was seen and discussed with my attending physician Dr. Susan DRAKE. Alirio Alonzo DO PGY-1. Attending Provider Attestation/Addendum After examination of the patient and review of the clinical data I feel that this patient needs admission to the hospital for further treatment/evaluation. Plan of care discussed with patient and is in agreement. I Monica Monroy MD, attest that I was physically present for wilson portions of evaluation, and examined patient, labs and imagings and plan of care were discussed with IM residents team, and I agree with the findings and plans documented above.
[2025-06-19] MEDS: CEFOXITIN 2 GM in SODIUM CHLORIDE 0.9% (Popper) 50 ML IV ×3 (06:30→21:01)
--- NOTE | 2025-06-19 11:15 | PD.SURCONS ---
HPI Consult details History of present illness: 70M with HTN, HLD, DMII, embolic stroke with left-sided weakness in 2020, left atrial thrombus on eliquis (last dose 06/18 in the evening) who presented with abdominal pain. Pt reports after eating he developed severe epigastric and RUQ pain, which he never had before and did not improve with tums prompting him to seek care in ER. He denies any nausea, fever or diarrhea and reports that pain is currently 7/10 from 04/17 and he is feeling hungry. Workup indicates acute cholecystitis PMH: HTN, HLD, DMII, embolic stroke with left-sided residual weakness, atrial thrombus PSHx: Remote appendectomy Meds: includes eliquis 5mg BID (last dose 06/18 in the evening), janiva, metformin, trulicity, metformin Allergies: Latex and adhesive Social hx: uses a wheelchair due to left side weakness Review of Systems Review of Systems ROS Unobtainable: All systems reviewed & no additional complaints except as documented Meds Home Medications and Allergies Home Medications ?Medication ?Instructions ?Recorded ?Confirmed ?Type ascorbic acid (vitamin C) 1,000 mg 1,000 mg PO DAILY 09/22/20 06/19/25 History tablet (Vitamin C) metformin 1,000 mg tablet 1,000 mg PO BID 09/22/20 06/19/25 History sitagliptin phosphate 100 mg 100 mg PO HS 09/22/20 06/19/25 History tablet (Januvia) atorvastatin 80 mg tablet 80 mg PO HS 10/27/20 06/19/25 History insulin glargine 100 unit/mL 15 unit subcut QAM 10/27/20 06/19/25 History subcutaneous solution (Lantus U-100 Insulin) alendronate 70 mg tablet 70 mg PO QWEEK 04/09/23 06/19/25 History allopurinol 100 mg tablet 200 mg PO QDAY 04/09/23 06/19/25 History hydroxyzine HCl 25 mg tablet 25 mg PO [id number] PRN Itching 04/09/23 06/19/25 History loratadine 10 mg tablet 10 mg PO QDAY 04/09/23 06/19/25 History acetaminophen 325 mg tablet 650 mg PO Q4H PRN pain 06/19/25 06/19/25 History (Tylenol) calcium carb-ergocalciferol (vit 1 tab PO BID 06/19/25 06/19/25 History D2) 600 mg calcium-200 unit tablet dapagliflozin propanediol 10 mg 10 mg PO DAILY 06/19/25 06/19/25 History tablet (Farxiga) dulaglutide 1.5 mg/0.5 mL 1.5 mg subcut QWEEK 06/19/25 06/19/25 History subcutaneous pen injector (Trulicity) insulin degludec 200 unit/mL (3 18 unit subcut DAILY 06/19/25 06/19/25 History mL) subcutaneous pen (Tresiba FlexTouch U-200 insulin) pioglitazone 30 mg tablet 30 mg PO DAILY 06/19/25 06/19/25 History rosuvastatin 40 mg tablet 40 mg PO HS 06/19/25 06/19/25 History triamcinolone acetonide 0.5 % 1 applic topical BID 06/19/25 06/19/25 History topical ointment Allergies Allergy/AdvReac Type Severity Reaction Status Date / Time adhesive tape AdvReac Mild Rash Verified 06/19/25 02:14 latex AdvReac Mild Rash Verified 06/19/25 02:14 Exam Vital Signs Temp Pulse Resp BP Pulse Ox O2 Del Method 97.3 F 97 18 107/58 L 96 Room Air 06/19/25 09:57 06/19/25 09:57 06/19/25 09:57 06/19/25 09:57 06/19/25 09:57 06/19/25 09:57 Constitutional Constitutional: no acute distress Routine Respiratory Exam Respiratory: Present no resp distress Routine Abdominal Exam Abdominal: Present soft and tenderness (mild RUQ tenderness); Absent distended, rebound or guarding Results Results: Laboratory Laboratory results: results reviewed Results: Imaging CT scan - abdomen: report reviewed US - abdomen: report reviewed Assessment & Plan Plan 70M with HTN, HLD, DMII, embolic stroke with left-sided weakness in 2020, left atrial thrombus on eliquis (last dose 06/18 in the evening) presenting with signs and symptoms of acute cholecytitis. Due to his eliquis use I explained that surgery will need to wait and have scheduled it for Friday 06/22 at 730am. I explained benefits/risks including need for conversion to open, bleeding, infection, injury to nearby structures potentially requiring further procedures including major biliary reconstruction at a tertiary hospital, as well as postoperative hernia and diarrhea. All questions were answered and pt is agreeable to proceeding Diabetic CLD for now, ok to advance to low fat DM diet as tolerated NPO after MN Sunday night for surgery 730am Continue abx
[2025-06-19] MEDS: INSULIN LISPRO (AdmeLOG) 1 UNIT/0.01 ML UNIT SC (11:53)
--- NOTE | 2025-06-19 14:55 | ESPR_ITS ---
Documentation for date of: 06/19/25 Subjective - Hospitalist Subjective Interval history: Patient seen at bedside. He reports his abdominal pain is somewhat improved from admission with IV pain medicines. Discussed with patient he is pending cholecystectomy for cholecystitis and patient in agreement. Patient was seen by general surgery and will perform cholecystectomy on 06/22 as patient received his Eliquis yesterday. Patient showed understanding. He endorses mild nausea currently but no vomiting. He denies headache, chest pain, palpitations, and no shortness of breath. Afebrile. Review of Systems Review of Systems Systems Reviewed: All systems reviewed, normal except as documented Exam Vital Signs Temp Pulse Resp BP Pulse Ox O2 Del Method 98.7 F 103 H 18 115/70 96 Room Air 06/19/25 12:06/19/25 12:06/19/25 12:06/19/25 12:06/19/25:06/19/25 12: Narrative General: Awake and in no acute distress. Conversational Neurologic: GCS 15. Alert and oriented x3, patient able to move all 4 extremities. HEENT: Normocephalic, atraumatic, mucous membranes moist. Pupils reactive to light. Heart: Regular rate and rhythm, normal S1 and S2, no murmurs. Lungs: Clear to auscultation bilaterally with no wheezing or crackles. Abdomen: Midepigastric and right upper quadrant pain on palpation, positive Middleton's sign. Nondistended. No guarding or rebound tenderness. Extremities: 4 out of 5 strength in the left upper and lower extremity. No edema. 2+ radial and dorsalis pedis pulses bilaterally. Skin: Warm. Dry. No rash or ecchymoses. Objective - Hospitalist Labs Diagram: 06/19/25 02:24 06/19/25 02:24 Labs: Laboratory Results - last 24 hr 06/19/25 06/19/25 02:24 04:19 WBC 12.3 H RBC 5.31 Hgb 15.1 Hct 46.5 MCV 88 MCH 28.4 MCHC 32.5 RDW Std Deviation 45.5 H Plt Count 312 Neut % (Auto) 67 Lymph % (Auto) 22 [place] % (Auto) 7 Eos % (Auto) 3 Baso % (Auto) 1 Neut # (Auto) 8.2 H Lymph # (Auto) 2.6 [place] # (Auto) 0.9 H Eos # (Auto) 0.4 Baso # (Auto) 0.1 Immature Gran # (Auto) 0.06 H Absolute Nucleated RBC 0.00 Immature Gran % 1 H Nucleated RBC % 0 Sodium 141 Potassium 4.5 Chloride 103 Carbon Dioxide 24.2 Anion Gap 14 BUN 16 Creatinine 1.5 H Estim Creat Clear Calc 45.8 L eGFR 50 L BUN/Creatinine Ratio 11 L Glucose 217 H Calculated Osmolality 289 Calcium 9.5 Corrected Calcium 9.5 Magnesium 2.0 Total Bilirubin 0.6 Direct Bilirubin 0.3 AST 234 H ALT 489 H Alkaline Phosphatase 159 H Total Protein 7.6 Albumin 4.5 Globulin 3.1 Albumin/Globulin Ratio 1.5 Amylase 203 H Lipase 63 H Ur Collection Type Clean Catch Urine Color Lt-Yellow Urine Clarity Clear Urine pH 6.0 Ur Specific [place] 1.027 Urine Protein Trace Urine Glucose (UA) 4+ A Urine Ketones Trace Urine Blood Negative Urine Nitrite Negative Urine Bilirubin Negative Urine Urobilinogen (Auto) Negative Ur Leukocyte Esterase Negative Urine RBC 1 Urine WBC 1 Ur Squamous Epith Cells < 1 Urine Bacteria None Ur Culture Indicated? Not Indicated Assessment & Plan Plan: Patient is a 70-year-old male with past medical history of primary hypertension, hyperlipidemia, embolic stroke with left-sided residual weakness in 2020, left atrial appendage thrombus, and PFO presented to the ED in the early childhood teacher of 06/19/2025 with chief complaint of midepigastric and right upper quadrant pain. He was found to have acute calculous cholecystitis on abdominal CT with gallbladder wall thickening. #Acute calculous cholecystitis #Leukocytosis Patient presented with midepigastric and right upper quadrant pain after eating dinner T. bili normal, makes choledocholithiasis or ascending cholangitis less likely Patient is afebrile and not encephalopathic AST 234, ALT 489 WBC 12.3 likely secondary to infection versus acute phase Plan: Surgery consulted with plans for cholecystectomy on 06/22 given that patient received his Eliquis yesterday. Continue Cefoxitin 2 g every 8 hours, Morphine 4 mg IV every 4 hours as needed for pain. Clear liquid diet okay for now. Follow-up culture results. #CHARITY Creatinine of 1.5, BUN 16 May be secondary to dehydration versus hypotension Patient received a liter of fluid in the ED Plan: Most likely secondary to prerenal azotemia from poor oral intake. Continue low-dose IVF and monitor for improvement with repeat renal panel in AM. #History of embolic strokes Brain MRI on 09/25/2020 showed multiple small infarcts in the right occipital lobe and right temporal lobes Patient has residual left-sided weakness TRENT on 09/27/2020 showed small left atrial appendage thrombus and patent foramen ovale Plan: Hold home Eliquis for now. #Insulin-dependent diabetes mellitus #Hyperglycemia Patient presented with a glucose of 217 Takes short and long-acting insulin as well as Farxiga, pioglitazone at home A1c of 7.8 on 03/30/2025 Plan: Continue insulin sliding scale with Accu-Cheks. Target blood sugar 140- 180 while hospitalized. Hospital Maintenance: DVT ppx: SCDs Diet: N.p.o. IV lines: Peripheral IVs Code status: Full code Dispo: MedSurg, started on cefoxitin and surgery consulted for acute calculous cholecystitis. Dr. Arlene MD Time Spent with Patient Time: Total time spent is greater than 50% in coordination of care (as documented) at patient's floor/unit and/or counseling patient: Time with patient: 25 - 35 minutes Reason for Continued Stay Reason for continued stay: surgical intervention Quality Measures Quality Measures none Advance care planning discussed with:: patient
[2025-06-19] MEDS: ATORVASTATIN CALCIUM 10 MG TABLET 40 MG PO (20:06)
[2025-06-20] VITALS (7 sets, daily range): BP systolic 99–128; BP diastolic 57–96; PULSE 73–85; RESP 16–97; TEMP 36.1–37.1; O2SAT 93–95
[2025-06-20 00:33] LABS: Hepatitis A Antibody IgM Non Reactive (Non React); Hepatitis B Core Antibody IgM Non Reactive (Non React); Hepatitis B Surface Antigen Non Reactive (Non React); Hepatitis C Antibody Non Reactive (Non React)
[2025-06-20] MEDS: CEFOXITIN 2 GM in SODIUM CHLORIDE 0.9% (Popper) 50 ML IV ×3 (05:03→21:10)
[2025-06-20 05:37] LABS: Basophils # (Auto) 0.1 Thou/mm3 (0.0-0.2); Basophils % (Auto) 1 % (0-2.5); Eosinophils # (Auto) 0.1 Thou/mm3 (0.0-0.5); Eosinophils % (Auto) 1 % (0-10); Hematocrit 41.5 % (41.0-53.0); Hemoglobin 13.5 g/dL (13.5-16.0); Immature Granulocytes Auto 0.04 Thou/mm3 (0.00-0.00); Lymphocytes # (Auto) 1.5 Thou/mm3 (1.0-4.8); Lymphocytes % (Auto) 13 % (10-50); Mean Corpuscular HGB Conc 32.5 g/dl (31.0-37.0); Mean Corpuscular Hemoglobin 28.0 pg (25.0-35.0); Mean Corpuscular Volume 86 fL (80-100); Monocytes # (Auto) 1.4 Thou/mm3 (0.0-0.8); Monocytes % (Auto) 12 % (0-12); Neutrophils # (Auto) 8.2 Thou/mm3 (1.8-7.7); Neutrophils % (Auto) 73 % (37-80); Nucleated Red Blood Cell # 0.00 Thou/mm3 (0.00-0.00); Nucleated Red Blood Cell % 0 /100 WBC (0); Platelet Count 248 Thou/mm3 (140-440); RDW Standard Deviation 45.1 fL (35.1-43.9); Red Blood Count 4.82 Miln/mm3 (4.50-5.90); White Blood Count 11.3 Thou/mm3 (3.8-10.6)
[2025-06-20 05:56] LABS: Alanine Aminotransferase 280 U/L (10-49); Albumin, Serum 4.0 gm/dL (3.4-4.8); Albumin/Globulin Ratio 1.5 (1.2-2.2); Alkaline Phosphatase 123 U/L (46-116); Anion Gap 8 (7-16); Aspartate Amino Transferase 73 U/L (0-34); BUN/Creatinine Ratio 7 Ratio (12-20); Bilirubin,Total 1.0 mg/dL (0.3-1.2); Blood Urea Nitrogen 10 mg/dL (9-23); Calcium 9.0 mg/dL (8.3-10.6); Calcium (Corrected) 9.0 mg/dL (8.5-10.1); Carbon Dioxide 23.6 mMol/L (20.0-31.0); Chloride 107 mMol/L (98-107); Creatinine (Component) 1.4 mg/dL (0.6-1.3); Estimated Creatinine Clearance 42.7 mL/min (>60); Globulin 2.7 gm/dL (2.3-3.5); Glucose 114 mg/dL (74-106); Magnesium 2.0 mg/dL (1.6-2.6); Osmolality,Calculated 277 (275-295); Potassium 4.0 mMol/L (3.4-5.1); Sodium 139 mMol/L (136-145); Total Protein 6.7 gm/dL (5.7-8.2); eGFR 54 See Note
[2025-06-20] MEDS: SODIUM CHLORIDE 0.9% 1000 ML 1,000 ML 45 ML IV (11:14)
--- NOTE | 2025-06-20 11:16 | PC.SS ---
This is 70-year-old, , male who presented to the ED due to suffering from abdominal pain. Patient appeared pleasant. Patient reported that he resides at home with his , Jaqueline. Patient was able to verify and confirm his address and phone number. Patient reported that he has a history of a stroke, he now has left side physical deficits. Patient needs assistance to complete most of his ADLs. He use a quad cane and wheelchair. Patient's PCP is Dr. St. Patient assigned his daughter, Magalys (Adeline/phone: [phone]), as his primary medical surrogate decision maker. When medically clear, patient will return home, family will provide transportation. However, family is requesting for home health to assist with transition to home. Discharge plan: return home with home health.
--- NOTE | 2025-06-20 14:09 | ESPR_ITS ---
<Statement entered by Bud Kingsley MD - 06/20/25 16:34> No acute overnight events. Seen and examined at bedside and patient resting comfortably in bed with family present. Plans to go to the OR on 06/22 given the patient had taken his Eliquis day of presentation. Denies any abdominal pain, nausea, vomiting. Vital signs stable as he has remained afebrile and on room air. CBC shows improving leukocytosis and stable hemoglobin. CHEM panel shows improving renal function but still elevated compared to baseline, improving LFTs and alk phos. Will continue with IV antibiotics and continue to monitor. ----- Note reviewed and agree with care plan as documented. Please refer to the note below for further details. Plan discussed with attending physician Dr. Arlene Kingsley MD PGY-2 Internal Medicine Documentation for date of: 06/20/25 Subjective Subjective Interval history: EKG events overnight. Patient seen and examined at bedside. No acute complaint of pain. Denies nausea, vomiting, abdominal pain and fever. Vitals are reviewed, afebrile and stable. Labs reviewed and CBC noted improved with leukocytosis. Improved LFTs and alkaline phosphatase. Blood culture no growth after 24 hours in 2 bottles Plans to go to the OR on 06/22 given the patient had taken his Eliquis day of presentation Exam Vital Signs Temp Pulse Resp BP Pulse Ox O2 Del Method 97.0 F 80 18 99/57 L 94 L Room Air 06/20/25 12:00 06/20/25 12:00 06/20/25 12:00 06/20/25 12:00 06/20/25 12:06/20/25 12:00 Narrative Exam General: Awake and in no acute distress. Conversational Neurologic: GCS 15. Alert and oriented x3, patient able to move all 4 extremities. HEENT: Normocephalic, atraumatic, mucous membranes moist. Pupils reactive to light. Heart: Regular rate and rhythm, normal S1 and S2, no murmurs. Lungs: Clear to auscultation bilaterally with no wheezing or crackles. Abdomen: sift, non-distende, Nondistended. No guarding or rebound tenderness. Extremities: 4 out of 5 strength in the left upper and lower extremity. No edema. 2+ radial and dorsalis pedis pulses bilaterally. Skin: Warm. Dry. No rash or ecchymoses. Objective Labs 06/21/25 05:02 06/21/25 05:02 Labs: Laboratory Results - last 24 hr 06/20/25 06/20/25 04:38 05:00 WBC 11.3 H RBC 4.82 Hgb 13.5 Hct 41.5 MCV 86 MCH 28.0 MCHC 32.5 RDW Std Deviation 45.1 H Plt Count 248 D Neut % (Auto) 73 Lymph % (Auto) 13 [place] % (Auto) 12 Eos % (Auto) 1 Baso % (Auto) 1 Neut # (Auto) 8.2 H Lymph # (Auto) 1.5 [place] # (Auto) 1.4 H Eos # (Auto) 0.1 Baso # (Auto) 0.1 Immature Gran # (Auto) 0.04 H Absolute Nucleated RBC 0.00 Immature Gran % 0 Nucleated RBC % 0 Sodium 139 Potassium 4.0 D Chloride 107 Carbon Dioxide 23.6 Anion Gap 8 BUN 10 Creatinine 1.4 H Estim Creat Clear Calc 42.7 L eGFR 54 L BUN/Creatinine Ratio 7 L Glucose 114 H D Calculated Osmolality 277 Calcium 9.0 Corrected Calcium 9.0 Magnesium 2.0 Total Bilirubin 1.0 AST 73 H ALT 280 H Alkaline Phosphatase 123 H D Total Protein 6.7 Albumin 4.0 D Globulin 2.7 Albumin/Globulin Ratio 1.5 Hepatitis A IgM Ab Non Reactive Hep Bs Antigen Non Reactive Hep B Core IgM Ab Non Reactive Hepatitis C Antibody Non Reactive Quality Measures Quality Measures none Advance care planning discussed with:: patient and other Assessment & Plan Assessment Current Active Medications: Generic Name Dose Route Start Last Admin Trade Name Freq PRN Reason Stop Dose Admin Allopurinol 200 mg 06/20/25 09:00 06/20/25 08:01 Allopurinol 100 Mg Tablet PO 07/20/25 08:59 200 mg DAILY DAREN Administration Atorvastatin Calcium 40 mg 06/19/25 21:00 06/19/25 20:06 Atorvastatin Calcium 10 Mg Tablet PO 07/19/25 20:59 40 mg HS DAREN Administration Dextrose 25 ml 06/19/25 09:10 Dextrose 50%-Water Inj 50 Ml Syringe IV 07/19/25 09:09 Q15MIN PRN BG 50-70 responsive npo pt Dextrose 50 ml 06/19/25 09:10 Dextrose 50%-Water Inj 50 Ml Syringe IV 07/19/25 09:09 Q15MIN PRN BG <50 OR BG <70 & pt unresponsive Glucagon 1 mg 06/19/25 09:10 Glucagon Inj 1 Mg Vial IM Q15MIN PRN BG <70, and no IV access Cefoxitin Sodium 2 gm/ Sodium 50 mls @ 100 mls/hr 06/19/25 14:15 06/20/25 13:30 Chloride IV 06/26/25 05:59 100 mls/hr Q8HR DAREN Administration Sodium Chloride 1,000 mls @ 45 mls/hr 06/20/25 11:15 06/20/25 11:14 Ns IV 06/21/25 11:14 45 mls/hr .[id number] DAREN Administration Insulin Human Lispro 0 unit 06/19/25 11:30 06/20/25 11:12 Insulin Lispro (Admelog) 1 Unit/0.01 Ml Unit SC 07/19/25 11:29 Not Given AC DAREN Protocol Morphine Sulfate 4 mg 06/19/25 10:30 Morphine Sulf Inj 4 Mg/Ml Vial IVP 06/24/25 10:29 Q4HR PRN PAIN SCALE 4-10(Mod-Sev Plan Patient is a 70-year-old male with past medical history of primary hypertension, hyperlipidemia, embolic stroke with left-sided residual weakness in 2020, left atrial appendage thrombus, and PFO 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 He was found to have acute calculous cholecystitis on abdominal CT with gallbladder wall thickening. #Acute calculous cholecystitis #Leukocytosis (improving) #Transaminitis (improving) Patient presented with midepigastric and right upper quadrant pain after eating dinner T. bili normal, makes choledocholithiasis or ascending cholangitis less likely Patient is afebrile and not encephalopathic AST 234->73 , ALT 489->280. Alk phos 159->123 WBC 12.3 likely secondary to infection versus acute phase Plan: -Surgery consulted with plans for cholecystectomy on 06/22 given that patient received his Eliquis on 06/19. - Continue Cefoxitin 2 g every 8 hours ( 06/19-) - Morphine 4 mg IV every 4 hours as needed for pain. - Clear liquid diet okay for now. - Follow-up culture results- bcx no growth after 24 hrs in 2 bottles #CHARITY Creatinine of 1.5, BUN 16 May be secondary to dehydration versus hypotension Patient received a liter of fluid in the ED Plan - Most likely secondary to prerenal azotemia from poor oral intake. - Continue low-dose IVF and monitor for improvement with repeat renal panel in AM. #History of embolic strokes Brain MRI on 09/25/2020 showed multiple small infarcts in the right occipital lobe and right temporal lobes Patient has residual left-sided weakness TRENT on 09/27/2020 showed small left atrial appendage thrombus and patent foramen ovale Plan: - Hold home Eliquis for now. #Insulin-dependent diabetes mellitus Patient presented with a glucose of 217. Takes short and long-acting insulin as well as Farxiga, pioglitazone at home -A1c of 7.8 on 03/30/2025 Plan - Continue insulin sliding scale with Accu-Cheks. - Target blood sugar 140-180 while hospitalized. Hospital management: Lines: peripheral IV Diet: Diabetic clear liquid diet Bowel: n/a GI prophylaxis: n/A DVT prophylaxis: Disposition: MedSurg, started on cefoxitin and surgery consulted for acute calculous cholecystitis. CODE STATUS: Full code Patient assessed under supervision of attending physician and senior resident Dr. Kingsley PGY-2 Flor Hernadez MD PGY-1, Internal Medicine Please note: this document was transcribed using voice recognition technology; minor inaccuracies may be present. Attending Provider Attestation/Addendum I have examined the patient, reviewed labs and imaging findings, discussed the case with the resident(s), and reviewed entered orders. I agree with the plan of care as outlined in this note. Dr. Arlene MD
[2025-06-20 15:39] LABS: Thyroid Stimulating Hormone 0.62 uIU/mL (0.55-4.78)
--- NOTE | 2025-06-20 16:59 | PC.NURSE ---
Patient has not IV access he wanted me to remove IV because it was hurting. I removed IV called Lynn from ICU she will come and insert and ultra sound guided IV
[2025-06-20] MEDS: ATORVASTATIN CALCIUM 10 MG TABLET 40 MG PO (21:12)
[2025-06-21] VITALS (9 sets, daily range): BP systolic 94–123; BP diastolic 62–78; PULSE 68–79; RESP 16–95; TEMP 36.2–36.7; O2SAT 93–96
[2025-06-21] MEDS: CEFOXITIN 2 GM in SODIUM CHLORIDE 0.9% (Popper) 50 ML IV ×3 (05:31→21:16)
[2025-06-21 05:52] LABS: Basophils # (Auto) 0.1 Thou/mm3 (0.0-0.2); Basophils % (Auto) 1 % (0-2.5); Eosinophils # (Auto) 0.4 Thou/mm3 (0.0-0.5); Eosinophils % (Auto) 4 % (0-10); Hematocrit 41.5 % (41.0-53.0); Hemoglobin 13.5 g/dL (13.5-16.0); Immature Granulocytes Auto 0.02 Thou/mm3 (0.00-0.00); Lymphocytes # (Auto) 1.7 Thou/mm3 (1.0-4.8); Lymphocytes % (Auto) 17 % (10-50); Mean Corpuscular HGB Conc 32.5 g/dl (31.0-37.0); Mean Corpuscular Hemoglobin 28.0 pg (25.0-35.0); Mean Corpuscular Volume 86 fL (80-100); Monocytes # (Auto) 1.0 Thou/mm3 (0.0-0.8); Monocytes % (Auto) 10 % (0-12); Neutrophils # (Auto) 6.8 Thou/mm3 (1.8-7.7); Neutrophils % (Auto) 68 % (37-80); Nucleated Red Blood Cell # 0.00 Thou/mm3 (0.00-0.00); Nucleated Red Blood Cell % 0 /100 WBC (0); Platelet Count 228 Thou/mm3 (140-440); RDW Standard Deviation 45.8 fL (35.1-43.9); Red Blood Count 4.83 Miln/mm3 (4.50-5.90); White Blood Count 10.0 Thou/mm3 (3.8-10.6)
[2025-06-21 06:08] LABS: Alanine Aminotransferase 245 U/L (10-49); Albumin, Serum 4.0 gm/dL (3.4-4.8); Albumin/Globulin Ratio 1.4 (1.2-2.2); Alkaline Phosphatase 150 U/L (46-116); Anion Gap 11 (7-16); Aspartate Amino Transferase 124 U/L (0-34); BUN/Creatinine Ratio 11 Ratio (12-20); Bilirubin,Total 1.3 mg/dL (0.3-1.2); Blood Urea Nitrogen 13 mg/dL (9-23); Calcium 8.5 mg/dL (8.3-10.6); Calcium (Corrected) 8.5 mg/dL (8.5-10.1); Carbon Dioxide 22.6 mMol/L (20.0-31.0); Chloride 108 mMol/L (98-107); Creatinine (Component) 1.2 mg/dL (0.6-1.3); Estimated Creatinine Clearance 49.8 mL/min (>60); Globulin 2.8 gm/dL (2.3-3.5); Glucose 97 mg/dL (74-106); Osmolality,Calculated 283 (275-295); Potassium 4.0 mMol/L (3.4-5.1); Sodium 142 mMol/L (136-145); Total Protein 6.8 gm/dL (5.7-8.2); eGFR > 60 See Note
--- NOTE | 2025-06-21 10:31 | ESPR_ITS ---
<Statement entered by Bud Kingsley MD - 06/21/25 14:44> No acute overnight events. Seen and examined at bedside patient resting company in bed. Denies any abdominal pain, nausea, vomiting, fever, chills but some tenderness on examination. Vital signs stable. CBC showing resolved leukocytosis, stable hemoglobin. CHEM panel showing improved renal function, slight increase in T. bili, ALP, AST and downtrending ALT. Will update general surgery and continue cefoxitin with plans to go to the OR tomorrow. Will check in with general surgery afterwards regarding resumption of patient's Eliquis. ----- Note reviewed and agree with care plan as documented. Please refer to the note below for further details. Plan discussed with attending physician Dr. Arlene Kingsley MD PGY-2 Internal Medicine Documentation for date of: 06/21/25 Subjective Subjective Interval history: No acute events overnight. Patient was seen and examine at bedside. No active complains. Denies nausea, vomiting, chills and abdominal pain. Vitals stable and afebrile. Leukocytosis resolve. Transaminitis mildly improving, Alk phosp uptrended. BCx still no growth after 48hrs. NPO after midnight with cholecystectomy plan tomorrow. No BM for 3 days started schedule Docusate, MiraLAX x1 and Milk of Mag x1 Exam Vital Signs Temp Pulse Resp BP Pulse Ox O2 Del Method 97.4 F 70 16 110/66 93 L Room Air 06/21/25 07:46 06/21/25 09:51 06/21/25 09:51 06/21/25 07:46 06/21/25 07:46 06/21/25 07:46 Narrative Exam General: Alert, no acute distress.Conversational and non-toxic appearing. Skin: Warm, dry, intact. No rash or ecchymoses. Head: Normocephalic, atraumatic. Eye: Normal conjunctiva, PERRL. Throat: Oral mucosa moist. No obvious lesions in oropharynx. Cardiovascular: Regular rate and rhythm, no murmur, +S1/S2. Respiratory: Lungs are clear to auscultation, respirations unlabored, no crackles, no wheezing. Gastrointestinal: Soft, nontender, non-distended. No guarding or rebound tenderness. Extremities: No edema, no cyanosis, no clubbing. Neuro: Alert and oriented x3.No focal deficits observed. Conversant, moving all extremities. No overt cerebellar signs/incoordination. Psychiatric: Cooperative, appropriate affect Objective Labs 06/22/25 05:25 06/22/25 05:25 Labs: Laboratory Results - last 24 hr 06/20/25 06/21/25 04:38 05:02 WBC 10.0 RBC 4.83 Hgb 13.5 Hct 41.5 MCV 86 MCH 28.0 MCHC 32.5 RDW Std Deviation 45.8 H Plt Count 228 Neut % (Auto) 68 Lymph % (Auto) 17 [place]ie % (Auto) 10 Eos % (Auto) 4 Baso % (Auto) 1 Neut # (Auto) 6.8 Lymph # (Auto) 1.7 Bertie # (Auto) 1.0 H Eos # (Auto) 0.4 Baso # (Auto) 0.1 Immature Gran # (Auto) 0.02 H Absolute Nucleated RBC 0.00 Immature Gran % 0 Nucleated RBC % 0 Sodium 142 Potassium 4.0 Chloride 108 H Carbon Dioxide 22.6 Anion Gap 11 BUN 13 Creatinine 1.2 Estim Creat Clear Calc 49.8 L eGFR > 60 BUN/Creatinine Ratio 11 L Glucose 97 Calculated Osmolality 283 Calcium 8.5 Corrected Calcium 8.5 Total Bilirubin 1.3 H AST 124 H ALT 245 H Alkaline Phosphatase 150 H D Total Protein 6.8 Albumin 4.0 Globulin 2.8 Albumin/Globulin Ratio 1.4 TSH 0.62 Quality Measures Quality Measures VTE prophylaxis Advance care planning discussed with:: patient and other Assessment & Plan Assessment Current Active Medications: Generic Name Dose Route Start Last Admin Trade Name Blanca PRN Reason Stop Dose Admin Allopurinol 200 mg 06/20/25 09:00 06/21/25 08:04 Allopurinol 100 Mg Tablet PO 07/20/25 08:59 200 mg DAILY DAREN Administration Atorvastatin Calcium 40 mg 06/19/25 21:00 06/20/25 21:12 Atorvastatin Calcium 10 Mg Tablet PO 07/19/25 20:59 40 mg HS DAREN Administration Dextrose 25 ml 06/19/25 09:10 Dextrose 50%-Water Inj 50 Ml Syringe IV 07/19/25 09:09 Q15MIN PRN BG 50-70 responsive npo pt Dextrose 50 ml 06/19/25 09:10 Dextrose 50%-Water Inj 50 Ml Syringe IV 07/19/25 09:09 Q15MIN PRN BG <50 OR BG <70 & pt unresponsive Glucagon 1 mg 06/19/25 09:10 Glucagon Inj 1 Mg Vial IM Q15MIN PRN BG <70, and no IV access Cefoxitin Sodium 2 gm/ Sodium 50 mls @ 100 mls/hr 06/19/25 14:15 06/21/25 05:31 Chloride IV 06/26/25 05:59 100 mls/hr Q8HR DAREN Administration Sodium Chloride 1,000 mls @ 45 mls/hr 06/20/25 11:15 06/20/25 11:14 Ns IV 06/21/25 11:14 45 mls/hr .[id number] DAREN Administration Insulin Human Lispro 0 unit 06/19/25 11:30 06/21/25 07:29 Insulin Lispro (Admelog) 1 Unit/0.01 Ml Unit SC 07/19/25 11:29 Not Given AC [facility] Protocol Morphine Sulfate 4 mg 06/19/25 10:30 Morphine Sulf Inj 4 Mg/Ml Vial IVP 06/24/25 10:29 Q4HR PRN PAIN SCALE 4-10(Mod-Sev Plan Patient is a 70-year-old male with past medical history of primary hypertension, hyperlipidemia, embolic stroke with left-sided residual weakness in 2020, left atrial appendage thrombus, and PFO 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 He was found to have acute calculous cholecystitis on abdominal CT with gallbladder wall thickening. #Acute calculous cholecystitis #Transaminitis (improving) #Leukocytosis (resolve) Patient presented with midepigastric and right upper quadrant pain after eating dinner T. bili normal, makes choledocholithiasis or ascending cholangitis less likely Patient is afebrile and not encephalopathic AST 234->73 , ALT 489->280. Alk phos 159->123 WBC 12.3 likely secondary to infection versus acute phase Plan: -Surgery consulted with plans for cholecystectomy on 06/22 given that patient received his Eliquis on 06/19. - Clear liquid diet- NPO after midnight - Continue Cefoxitin 2 g every 8 hours ( 06/19-) - Morphine 4 mg IV every 4 hours as needed for pain. - Follow-up culture results- bcx no growth after 48 hrs in 2 bottles #CHARITY (resolve) Creatinine of 1.5, BUN 16 May be secondary to dehydration versus hypotension Patient received a liter of fluid in the ED Plan - Most likely secondary to prerenal azotemia from poor oral intake. - Continue low-dose IVF #History of embolic strokes Brain MRI on 09/25/2020 showed multiple small infarcts in the right occipital lobe and right temporal lobes Patient has residual left-sided weakness TRENT on 09/27/2020 showed small left atrial appendage thrombus and patent foramen ovale Plan: - Hold home Eliquis for now. #Insulin-dependent diabetes mellitus Patient presented with a glucose of 217. Takes short and long-acting insulin as well as Farxiga, pioglitazone at home -A1c of 7.8 on 03/30/2025 Plan - Continue insulin sliding scale with Accu-Cheks. - Target blood sugar 140-180 while hospitalized. Hospital management: Lines: peripheral IV Diet: Diabetic clear liquid diet Bowel: Milk of Mag and docusate GI prophylaxis: n/A DVT prophylaxis: Held eliquis Disposition: MedSurg, started on cefoxitin and surgery consulted for acute calculous cholecystitis. CODE STATUS: Full code Patient assessed under supervision of attending physician and senior resident Dr. Kingsley PGY-2 Flor Hernadez MD PGY-1, Internal Medicine Please note: this document was transcribed using voice recognition technology; minor inaccuracies may be present. Attending Provider Attestation/Addendum I have examined the patient, reviewed labs and imaging findings, discussed the case with the resident(s), and reviewed entered orders. I agree with the plan of care as outlined in this note. Dr. Arlene MD
[2025-06-21] MEDS: POLYETHYLENE GLYCOL 17 GM PACKET PO (13:12)
[2025-06-21] MEDS: Milk Of Magnesia Susp 30 ML UDC PO (13:44)
--- NOTE | 2025-06-21 15:44 | PC.NURSE ---
FAMILY WAS CONCERNED PATIENT HAS NOT HAD A BOWEL MOVEMENT SINCE JUN 18. I NOTIFIED DOCTORS AND ORDERS ARE IN PLACE. I HAVE GIVEN PATIENT MIRALAX AND MILK OF MAG.
--- NOTE | 2025-06-21 16:09 | PC.SS ---
Rounding: Plan for Lap Mariela tomorrow 06/22
[2025-06-21] MEDS: SODIUM CHLORIDE 0.9% 1000 ML 1,000 ML 45 ML IV (16:30)
[2025-06-21] MEDS: ATORVASTATIN CALCIUM 10 MG TABLET 40 MG PO (20:43)
[2025-06-21] MEDS: DOCUSATE SOD 100 MG CAPSULE PO (20:44)
[2025-06-22] VITALS (12 sets, daily range): BP systolic 107–174; BP diastolic 63–104; PULSE 70–106; RESP 14–96; TEMP 36.2–37.1; O2SAT 92–100
[2025-06-22] MEDS: CEFOXITIN 2 GM in SODIUM CHLORIDE 0.9% (Popper) 50 ML IV ×3 (05:14→21:12)
[2025-06-22 06:37] LABS: Basophils # (Auto) 0.1 Thou/mm3 (0.0-0.2); Basophils % (Auto) 1 % (0-2.5); Eosinophils # (Auto) 0.8 Thou/mm3 (0.0-0.5); Eosinophils % (Auto) 9 % (0-10); Hematocrit 41.7 % (41.0-53.0); Hemoglobin 13.7 g/dL (13.5-16.0); Immature Granulocytes Auto 0.03 Thou/mm3 (0.00-0.00); Lymphocytes # (Auto) 1.3 Thou/mm3 (1.0-4.8); Lymphocytes % (Auto) 15 % (10-50); Mean Corpuscular HGB Conc 32.9 g/dl (31.0-37.0); Mean Corpuscular Hemoglobin 28.2 pg (25.0-35.0); Mean Corpuscular Volume 86 fL (80-100); Monocytes # (Auto) 0.9 Thou/mm3 (0.0-0.8); Monocytes % (Auto) 10 % (0-12); Neutrophils # (Auto) 5.7 Thou/mm3 (1.8-7.7); Neutrophils % (Auto) 65 % (37-80); Nucleated Red Blood Cell # 0.00 Thou/mm3 (0.00-0.00); Nucleated Red Blood Cell % 0 /100 WBC (0); Platelet Count 252 Thou/mm3 (140-440); RDW Standard Deviation 46.4 fL (35.1-43.9); Red Blood Count 4.86 Miln/mm3 (4.50-5.90); White Blood Count 8.8 Thou/mm3 (3.8-10.6)
[2025-06-22 07:33] LABS: Alanine Aminotransferase 366 U/L (10-49); Albumin, Serum 4.0 gm/dL (3.4-4.8); Albumin/Globulin Ratio 1.4 (1.2-2.2); Alkaline Phosphatase 199 U/L (46-116); Anion Gap 11 (7-16); Aspartate Amino Transferase 284 U/L (0-34); BUN/Creatinine Ratio 11 Ratio (12-20); Bilirubin,Total 1.1 mg/dL (0.3-1.2); Blood Urea Nitrogen 12 mg/dL (9-23); Calcium 8.6 mg/dL (8.3-10.6); Calcium (Corrected) 8.6 mg/dL (8.5-10.1); Carbon Dioxide 24.8 mMol/L (20.0-31.0); Chloride 105 mMol/L (98-107); Creatinine (Component) 1.1 mg/dL (0.6-1.3); Estimated Creatinine Clearance 54.4 mL/min (>60); Globulin 2.9 gm/dL (2.3-3.5); Glucose 102 mg/dL (74-106); Osmolality,Calculated 280 (275-295); Potassium 4.4 mMol/L (3.4-5.1); Sodium 141 mMol/L (136-145); Total Protein 6.9 gm/dL (5.7-8.2); eGFR > 60 See Note
--- NOTE | 2025-06-22 08:39 | PD.SUROPNT ---
Date of Procedure 06/22/25 Pre Op Diagnosis Acute cholecystitis Post Op Diagnosis Same Procedure Laparoscopic cholecystectomy Findings Inflamed gallbladder Procedure Description After discussion of risks and benefits, patient was brought to the operating room, SCDs were placed and general anesthesia was induced. He had already received preoperative antibiotics and was prepped and draped in the usual sterile fashion. After timeout a supraumbilical incision was made with a #15 blade and the skin was elevated with towel clamps. A Veress needle was placed through the incision and proper positioning was confirmed with a drop test at which point the abdomen was insufflated to 12 mmHg. The Veress needle was then exchanged for a 5 mm camera using a Visiport technique. There were no signs of injury from the point of entry. 3 additional ports were placed under direct vision, one 12 mm at the epigastrium, one 5 mm right subcostal and one 5 mm right anterior axillary line. Patient was placed in reverse Trendelenburg. The fundus of the gallbladder was grasped and retracted cephalad and the infundibulum was grasped and retracted laterally. The lower third of the gallbladder was removed from the gallbladder bed using electrocautery and the hepatocystic triangle was cleared of all fat and fibrous tissue using blunt dissection. The critical view of safety was achieved showing 2 and only 2 structures entering the gallbladder, and the cystic duct and cystic artery were clipped and transected in the usual fashion. The gallbladder was removed from the gallbladder bed using electrocautery. Of note there was a very small accessory artery encountered during this dissection which was clipped and transected in the usual fashion. Hemostasis of the gallbladder bed was achieved with electrocautery and reinforced with Surgicel powder. The specimen was removed in an Endo Catch bag via the epigastric port and the epigastric fascia was closed with a 0 Vicryl suture using a Bobby-Jasvir. Counts were confirmed correct. Again hemostasis was confirmed and pneumoperitoneum was released while ports were removed under direct vision. Incisions were irrigated and infiltrated with half percent Marcaine for a total of 30 cc. Incisions were closed with 4-0 Monocryl and reinforced with Dermabond. Patient was extubated and brought to PACU in stable condition Pathology / specimen Other (Gallbladder) Estimated Blood Loss 50 Surgeon Dina Vazquez MD Surgical Staff Operation Date: 06/22/25 07:30 Case Staff Anesthesiologist: Jose Carlos Yeboah RNmotor bus driver: Tayla Madsen
--- NOTE | 2025-06-22 08:51 | SUR.PHASEI ---
pt received from OR in recovery bay 1. pt asleep but responds to voice, breathing unlabored on 4l nc. v/s stable. pt dressing to abd dermabond x4 cdi. report received from Dr. Yeboah and Jerri ROSARIO.
[2025-06-22] MEDS: fentaNYL CIT INJ 50 mCg/ML AMP 2ML IVP (09:00)
--- NOTE | 2025-06-22 09:24 | SUR.PHASEI ---
pt awake and alert, breathing unlabored on room air. v/s stable. pt dressing to abd x4 cdi. report called to Mandeep ROSARIO. pt will be transferred to room at this time.
[2025-06-22] MEDS: INSULIN LISPRO (AdmeLOG) 1 UNIT/0.01 ML UNIT SC ×2 (11:50→17:23)
[2025-06-22] MEDS: ACETAMINOPHEN INJ 1,000 MG/100 ML VIAL 1000 MG IV (11:51)
--- NOTE | 2025-06-22 12:07 | ESPR_ITS ---
<Statement entered by Bud Kingsley MD - 06/22/25 14:55> No acute overnight events. Seen and examined at bedside and resting comfortably in bed. Patient states he has no abdominal pain at rest but does have some on examination. Vital signs stable. CBC unremarkable. CHEM panel showing increasing LFTs and ALP but T. bili now within normal limits. Once OR today for laparoscopic cholecystectomy without any complications. Per general surgery can resume Eliquis on 06/24 but can be DC'd from their perspective as long as diet is advanced and patient can tolerate. Otherwise, will give enema for a bowel movement. ----- Note reviewed and agree with care plan as documented. Please refer to the note below for further details. Plan discussed with attending physician Dr. Arlene Kingsley MD PGY-2 Internal Medicine Documentation for date of: 06/22/25 Subjective Subjective Interval history: No acute events overnight. Patient was seen and examined at the bedside, resting comfortably in bed. He reports no abdominal pain at rest but experiences some discomfort on examination. Vital signs remain stable. CBC is unremarkable. The chemistry panel shows elevated liver function tests and alkaline phosphatase, though total bilirubin is now within normal limits. The patient underwent laparoscopic cholecystectomy today without complications. According to general surgery, Eliquis can be resumed on 06/24. Anticipated discharge withing 24-48hrs as long as the patient's diet is advanced and well-tolerated.No BM in 4 days, on bowel regimen and x1 mineral oil enema will be administered to assist with bowel movement. Exam Vital Signs Temp Pulse Resp BP Pulse Ox O2 Del Method O2 Flow Rate 97.3 F 82 17 139/73 H 92 L Room Air 2 06/22/25 09:35 06/22/25 09:35 06/22/25 09:35 06/22/25 09:35 06/22/25 09:35 06/22/25 09:35 06/22/25 09:05 Narrative Exam General: Alert, no acute distress.Conversational and non-toxic appearing. Skin: Warm, dry, intact. No rash or ecchymoses. Head: Normocephalic, atraumatic. Eye: Normal conjunctiva, PERRL. Throat: Oral mucosa moist. No obvious lesions in oropharynx. Cardiovascular: Regular rate and rhythm, no murmur, +S1/S2. Respiratory: Lungs are clear to auscultation, respirations unlabored, no crackles, no wheezing. Gastrointestinal: Soft, nontender, non-distended. No guarding or rebound tenderness. Extremities: No edema, no cyanosis, no clubbing. Neuro: Alert and oriented x3.No focal deficits observed. Conversant, moving all extremities. No overt cerebellar signs/incoordination. Psychiatric: Cooperative, appropriate affect Objective Labs 06/25/25 05:44 06/25/25 05:44 Labs: Laboratory Results - last 24 hr 06/22/25 05:25 WBC 8.8 RBC 4.86 Hgb 13.7 Hct 41.7 MCV 86 MCH 28.2 MCHC 32.9 RDW Std Deviation 46.4 H Plt Count 252 Neut % (Auto) 65 Lymph % (Auto) 15 [place] % (Auto) 10 Eos % (Auto) 9 Baso % (Auto) 1 Neut # (Auto) 5.7 Lymph # (Auto) 1.3 [place] # (Auto) 0.9 H Eos # (Auto) 0.8 H Baso # (Auto) 0.1 Immature Gran # (Auto) 0.03 H Absolute Nucleated RBC 0.00 Immature Gran % 0 Nucleated RBC % 0 Sodium 141 Potassium 4.4 Chloride 105 Carbon Dioxide 24.8 Anion Gap 11 BUN 12 Creatinine 1.1 Estim Creat Clear Calc 54.4 L eGFR > 60 BUN/Creatinine Ratio 11 L Glucose 102 Calculated Osmolality 280 Calcium 8.6 Corrected Calcium 8.6 Total Bilirubin 1.1 AST 284 H ALT 366 H Alkaline Phosphatase 199 H D Total Protein 6.9 Albumin 4.0 Globulin 2.9 Albumin/Globulin Ratio 1.4 Quality Measures Quality Measures VTE prophylaxis Advance care planning discussed with:: patient Assessment & Plan Assessment Current Active Medications: Generic Name Dose Route Start Last Admin Trade Name Freq PRN Reason Stop Dose Admin Hydrocodone Bitart/Acetaminophen 1 tab 06/22/25 10:02 Hydrocodone/Apap 5/325 Tablet PO 06/27/25 10:01 Q4HR PRN PAIN SCALE 4-10(Mod-Sev Allopurinol 200 mg 06/20/25 09:00 06/22/25 11:24 Allopurinol 100 Mg Tablet PO 07/20/25 08:59 Not Given DAILY DAREN Atorvastatin Calcium 40 mg 06/19/25 21:00 06/21/25 20:43 Atorvastatin Calcium 10 Mg Tablet PO 07/19/25 20:59 40 mg HS DAREN Administration Dextrose 25 ml 06/19/25 09:10 Dextrose 50%-Water Inj 50 Ml Syringe IV 07/19/25 09:09 Q15MIN PRN BG 50-70 responsive npo pt Dextrose 50 ml 06/19/25 09:10 Dextrose 50%-Water Inj 50 Ml Syringe IV 07/19/25 09:09 Q15MIN PRN BG <50 OR BG <70 & pt unresponsive Docusate Sodium 100 mg 06/21/25 12:27 06/21/25 20:44 Docusate Sod 100 Mg Capsule PO 07/21/25 12:26 100 mg QDAY PRN Administration CONSTIPATION Protocol Glucagon 1 mg 06/19/25 09:10 Glucagon Inj 1 Mg Vial IM Q15MIN PRN BG <70, and no IV access Cefoxitin Sodium 2 gm/ Sodium 50 mls @ 100 mls/hr 06/19/25 14:15 06/22/25 05:44 Chloride IV 06/26/25 05:59 Infused Q8HR DAREN Infusion Insulin Human Lispro 0 unit 06/22/25 06:00 06/22/25 11:50 Insulin Lispro (Admelog) 1 Unit/0.01 Ml Unit SC 07/22/25 05:59 1 unit Q6HR DAREN Administration Protocol Magnesium Hydroxide 30 ml 06/21/25 17:00 Milk Of Magnesia Susp 30 Ml Udc PO 07/21/25 16:59 QDAY PRN CONSTIPATION Protocol Metoprolol Tartrate 1 mg 06/22/25 08:14 Metoprolol Tartrate Inj 1 Mg/Ml Vial 5 Ml IVP 06/23/25 08:13 Q5M PRN TACHYCARDIA Morphine Sulfate 4 mg 06/22/25 10:04 Morphine Sulf Inj 4 Mg/Ml Vial IVP 06/24/25 10:29 Q4HR PRN PAIN SCALE 4-10(Mod-Sev Plan Patient is a 70-year-old male with past medical history of primary hypertension, hyperlipidemia, embolic stroke with left-sided residual weakness in 2020, left atrial appendage thrombus, and PFO presented to the ED in the certified physical therapist assistant of 06/19/2025 with chief complaint of midepigastric and right upper quadrant pain. He was found to have acute calculous cholecystitis on abdominal CT with gallbladder wall thickening. #Acute calculous cholecystitis s/p laparoscopic cholecystectomy #Transaminitis (improving) #Leukocytosis (resolve) Patient presented with midepigastric and right upper quadrant pain after eating dinner T. bili normal, makes choledocholithiasis or ascending cholangitis less likely Patient is afebrile and not encephalopathic AST 234->73 , ALT 489->280. Alk phos 159->123 WBC 12.3 likely secondary to infection versus acute phase 06/22-Laparoscopic cholecystectomy Plan: -Surgery consulted- DC when able to advance diet, resume eliquis on 06/14 - Clear liquid diet- NPO after midnight - Continue Cefoxitin 2 g every 8 hours ( 06/19-) - Morphine 4 mg IV every 4 hours as needed for pain. - Follow-up culture results- bcx no growth after 48 hrs in 2 bottles #History of embolic strokes Brain MRI on 09/25/2020 showed multiple small infarcts in the right occipital lobe and right temporal lobes Patient has residual left-sided weakness TRENT on 09/27/2020 showed small left atrial appendage thrombus and patent foramen ovale Plan: - Hold home Eliquis for now. - Resume June 24, 2025 #Insulin-dependent diabetes mellitus Patient presented with a glucose of 217. Takes short and long-acting insulin as well as Farxiga, pioglitazone at home -A1c of 7.8 on 03/30/2025 Plan - Continue insulin sliding scale with Accu-Cheks. - Target blood sugar 140-180 while hospitalized. #?Osteoporosis Medication LXX mg p.o. q. weekly, new DEXA scan results on EHR -Continue to follow-up outpatient PCP #CHARITY (resolve) Creatinine of 1.5, BUN 16 May be secondary to dehydration versus hypotension Patient received a liter of fluid in the ED Plan - Most likely secondary to prerenal azotemia from poor oral intake. Hospital management: Lines: peripheral IV Diet: Diabetic clear liquid diet advanced as tolerated Bowel: Milk of Mag and docusate GI prophylaxis: n/A DVT prophylaxis: Held eliquis Disposition: MedSurg, started on cefoxitin and surgery consulted for acute calculous cholecystitis. CODE STATUS: Full code Patient assessed under supervision of attending physician and senior resident Dr. Kingsley PGY-2 Flor Hernadez MD PGY-1, Internal Medicine Please note: this document was transcribed using voice recognition technology; minor inaccuracies may be present. Attending Provider Attestation/Addendum I have examined the patient, reviewed labs and imaging findings, discussed the case with the resident(s), and reviewed entered orders. I agree with the plan of care as outlined in this note. Dr. Arlene MD
[2025-06-22] MEDS: HYDROcodone/APAP 5/325 TABLET 1 TAB PO (14:38)
[2025-06-22] MEDS: MORPHINE SULF INJ 4 MG/ML VIAL IVP (17:22)
[2025-06-22] MEDS: ATORVASTATIN CALCIUM 10 MG TABLET 40 MG PO (21:12)
[2025-06-23] VITALS (9 sets, daily range): BP systolic 98–126; BP diastolic 62–77; PULSE 85–112; RESP 16–94; TEMP 35.8–37.3; O2SAT 90–98; BMI 12.0; BMI 27.0
[2025-06-23] MEDS: INSULIN LISPRO (AdmeLOG) 1 UNIT/0.01 ML UNIT SC ×5 (00:17→21:12)
[2025-06-23] MEDS: HYDROcodone/APAP 5/325 TABLET 1 TAB PO ×2 (00:44→07:32)
[2025-06-23] MEDS: Milk Of Magnesia Susp 30 ML UDC PO (00:45)
[2025-06-23] MEDS: MORPHINE SULF INJ 4 MG/ML VIAL IVP ×2 (01:41→05:49)
[2025-06-23 05:43] LABS: Basophils # (Auto) 0.0 Thou/mm3 (0.0-0.2); Basophils % (Auto) 0 % (0-2.5); Eosinophils # (Auto) 0.0 Thou/mm3 (0.0-0.5); Eosinophils % (Auto) 0 % (0-10); Hematocrit 38.5 % (41.0-53.0); Hemoglobin 12.7 g/dL (13.5-16.0); Immature Granulocytes Auto 0.02 Thou/mm3 (0.00-0.00); Lymphocytes # (Auto) 1.2 Thou/mm3 (1.0-4.8); Lymphocytes % (Auto) 13 % (10-50); Mean Corpuscular HGB Conc 33.0 g/dl (31.0-37.0); Mean Corpuscular Hemoglobin 28.1 pg (25.0-35.0); Mean Corpuscular Volume 85 fL (80-100); Monocytes # (Auto) 1.4 Thou/mm3 (0.0-0.8); Monocytes % (Auto) 15 % (0-12); Neutrophils # (Auto) 6.5 Thou/mm3 (1.8-7.7); Neutrophils % (Auto) 71 % (37-80); Nucleated Red Blood Cell # 0.00 Thou/mm3 (0.00-0.00); Nucleated Red Blood Cell % 0 /100 WBC (0); Platelet Count 308 Thou/mm3 (140-440); RDW Standard Deviation 45.9 fL (35.1-43.9); Red Blood Count 4.52 Miln/mm3 (4.50-5.90); White Blood Count 9.0 Thou/mm3 (3.8-10.6)
[2025-06-23] MEDS: CEFOXITIN 2 GM in SODIUM CHLORIDE 0.9% (Popper) 50 ML IV ×2 (05:44→13:33)
[2025-06-23] MEDS: SENNA/DOCUSATE SOD 1 TAB TABLET PO ×3 (05:44→21:10)
[2025-06-23] MEDS: POLYETHYLENE GLYCOL 17 GM PACKET PO (05:44)
[2025-06-23 06:29] LABS: Alanine Aminotransferase 305 U/L (10-49); Albumin, Serum 4.0 gm/dL (3.4-4.8); Albumin/Globulin Ratio 1.4 (1.2-2.2); Alkaline Phosphatase 166 U/L (46-116); Anion Gap 12 (7-16); Aspartate Amino Transferase 143 U/L (0-34); BUN/Creatinine Ratio 13 Ratio (12-20); Bilirubin,Total 1.1 mg/dL (0.3-1.2); Blood Urea Nitrogen 15 mg/dL (9-23); Calcium 8.7 mg/dL (8.3-10.6); Calcium (Corrected) 8.7 mg/dL (8.5-10.1); Carbon Dioxide 21.6 mMol/L (20.0-31.0); Chloride 104 mMol/L (98-107); Creatinine (Component) 1.2 mg/dL (0.6-1.3); Estimated Creatinine Clearance 49.8 mL/min (>60); Globulin 2.8 gm/dL (2.3-3.5); Glucose 220 mg/dL (74-106); Osmolality,Calculated 283 (275-295); Potassium 4.6 mMol/L (3.4-5.1); Sodium 138 mMol/L (136-145); Total Protein 6.8 gm/dL (5.7-8.2); eGFR > 60 See Note
[2025-06-23] MEDS: DOCUSATE SOD 250 MG CAPSULE PO (10:10)
[2025-06-23] MEDS: ACETAMINOPHEN IVPB 1,000 MG/100 ML VIAL 250 MG IV ×3 (10:11→21:13)
[2025-06-23] MEDS: POLYETHYLENE GLYCOL 17 GM PACKET 34 GM PO (10:44)
--- NOTE | 2025-06-23 10:44 | ESPR_ITS ---
<Statement entered by Bud Kingsley MD - 06/23/25 16:52> No acute overnight events. Seen and examined at bedside in a.m. a.m. patient states he had significant abdominal pain. States he has not been passing gas and no bowel movement as of yet. On exam abdomen slightly firm. Upon evaluation later on patient states that his pain is much improved. Touched base with general surgery and narcotics likely contributing to clinical picture. Otherwise, vital signs stable, labs largely unremarkable. After patient has a bowel movement patient can be discharged afterwards and per general surgery can restart Eliquis on 06/24. ----- Note reviewed and agree with care plan as documented. Please refer to the note below for further details. Plan discussed with attending physician Dr. Magalis Kingsley MD PGY-2 Internal Medicine Documentation for date of: 06/23/25 Subjective Subjective Interval history: No acute events overnight. Yesterday underwent laparoscopic cholecystectomy. Today patient was seen examined at bedside, resting comfortably in bed. Reports bloatedness and constipation, with last BM 6days ago. Denies nausea, vomiting and abdominal pain. KUB was ordered and showed mild to moderate small bowel ileus. Vitals are stable, afebrile. Labs reviewed and noted downtrending LFTs and alkaline phos. Change bowel regimen to colase to 50 mg, senna/docusate 1 tab p.o. twice daily, MiraLAX 34gm p.o. daily, Movantik 5 mg x 1. Patient has been mobile, PT evaluation. Exam Vital Signs Temp Pulse Resp BP Pulse Ox O2 Del Method O2 Flow Rate 98.8 F 112 H 16 112/76 93 L Room Air 2 06/23/25 08:10 06/23/25 08:10 06/23/25 08:10 06/23/25 08:10 06/23/25 08:10 06/23/25 08:10 06/22/25 09:05 Narrative Exam General: Awake and in no acute distress. Conversational Neurologic: GCS 15. Alert and oriented x3, patient able to move all 4 extremities. HEENT: Normocephalic, atraumatic, mucous membranes moist. Pupils reactive to light. Heart: Regular rate and rhythm, normal S1 and S2, no murmurs. Lungs: Clear to auscultation bilaterally with no wheezing or crackles. Abdomen: distended. No guarding or rebound tenderness. Extremities: 4 out of 5 strength in the left upper and lower extremity. No edema. 2+ radial and dorsalis pedis pulses bilaterally. Skin: Warm. Dry. No rash or ecchymoses. Objective Labs 06/24/25 05:18 06/24/25 05:18 Labs: Laboratory Results - last 24 hr 06/23/25 04:55 WBC 9.0 RBC 4.52 Hgb 12.7 L Hct 38.5 L MCV 85 MCH 28.1 MCHC 33.0 RDW Std Deviation 45.9 H Plt Count 308 D Neut % (Auto) 71 Lymph % (Auto) 13 [place] % (Auto) 15 H Eos % (Auto) 0 Baso % (Auto) 0 Neut # (Auto) 6.5 Lymph # (Auto) 1.2 [place] # (Auto) 1.4 H Eos # (Auto) 0.0 Baso # (Auto) 0.0 Immature Gran # (Auto) 0.02 H Absolute Nucleated RBC 0.00 Immature Gran % 0 Nucleated RBC % 0 Sodium 138 Potassium 4.6 Chloride 104 Carbon Dioxide 21.6 Anion Gap 12 BUN 15 Creatinine 1.2 Estim Creat Clear Calc 49.8 L eGFR > 60 BUN/Creatinine Ratio 13 Glucose 220 H D Calculated Osmolality 283 Calcium 8.7 Corrected Calcium 8.7 Total Bilirubin 1.1 AST 143 H ALT 305 H Alkaline Phosphatase 166 H D Total Protein 6.8 Albumin 4.0 Globulin 2.8 Albumin/Globulin Ratio 1.4 Quality Measures Quality Measures VTE prophylaxis Advance care planning discussed with:: patient Assessment & Plan Assessment Current Active Medications: Generic Name Dose Route Start Last Admin Trade Name Blanca PRN Reason Stop Dose Admin Allopurinol 200 mg 06/20/25 09:00 06/23/25 08:06 Allopurinol 100 Mg Tablet PO 07/20/25 08:59 200 mg DAILY DAREN Administration Atorvastatin Calcium 40 mg 06/19/25 21:00 06/22/25 21:12 Atorvastatin Calcium 10 Mg Tablet PO 07/19/25 20:59 40 mg HS DAREN Administration Dextrose 25 ml 06/19/25 09:10 Dextrose 50%-Water Inj 50 Ml Syringe IV 07/19/25 09:09 Q15MIN PRN BG 50-70 responsive npo pt Dextrose 50 ml 06/19/25 09:10 Dextrose 50%-Water Inj 50 Ml Syringe IV 07/19/25 09:09 Q15MIN PRN BG <50 OR BG <70 & pt unresponsive Docusate Sodium 250 mg 06/23/25 09:00 06/23/25 10:10 Docusate Sod 250 Mg Capsule PO 07/23/25 08:59 250 mg QDAY DAREN Administration Protocol Glucagon 1 mg 06/19/25 09:10 Glucagon Inj 1 Mg Vial IM Q15MIN PRN BG <70, and no IV access Cefoxitin Sodium 2 gm/ Sodium 50 mls @ 100 mls/hr 06/19/25 14:15 06/23/25 05:44 Chloride IV 06/26/25 05:59 100 mls/hr Q8HR DAREN Administration Acetaminophen 1,000 mg in 100 mls @ 250 mls/hr 06/23/25 09:01 06/23/25 10:11 Ofirmev Inj IV 06/24/25 03:24 250 mls/hr Q6H DAREN Administration Insulin Human Lispro 0 unit 06/23/25 07:30 06/23/25 07:32 Insulin Lispro (Admelog) 1 Unit/0.01 Ml Unit SC 07/23/25 07:29 2 unit ACHS DAREN Administration Protocol Magnesium Hydroxide 30 ml 06/23/25 10:20 Milk Of Magnesia Susp 30 Ml Udc PO 07/23/25 10:29 QDAY PRN CONSTIPATION Protocol Morphine Sulfate 4 mg 06/22/25 10:04 06/23/25 05:49 Morphine Sulf Inj 4 Mg/Ml Vial IVP 06/24/25 10:29 4 mg Q4HR PRN Administration PAIN SCALE 4-10(Mod-Sev Oxycodone HCl 5 mg 06/23/25 09:01 Oxycodone Hcl 5 Mg Ir Tab PO 06/28/25 09:00 Q4H PRN PAIN SCALE 4-10(Mod-Sev Polyethylene Glycol 34 gm 06/23/25 10:30 Polyethylene Glycol 17 Gm Packet PO 07/23/25 10:29 QDAY DAREN Plan Patient is a 70-year-old male with past medical history of primary hypertension, hyperlipidemia, embolic stroke with left-sided residual weakness in 2020, left atrial appendage thrombus, and PFO presented to the ED in the video engineer of 06/19/2025 with chief complaint of midepigastric and right upper quadrant pain. He was found to have acute calculous cholecystitis on abdominal CT with gallbladder wall thickening. #Acute calculous cholecystitis s/p laparoscopic cholecystectomy POD 1 #Transaminitis (improving) #Leukocytosis (resolve) Patient presented with midepigastric and right upper quadrant pain after eating dinner T. bili normal, makes choledocholithiasis or ascending cholangitis less likely Patient is afebrile and not encephalopathic AST 234->73 , ALT 489->280. Alk phos 159->123 WBC 12.3 likely secondary to infection versus acute phase 06/22-Laparoscopic cholecystectomy Plan: -Surgery consulted- DC when able to advance diet, resume eliquis on 06/14 - Continue Cefoxitin 2 g every 8 hours ( 06/19-06/23) - Morphine 4 mg IV every 4 hours as needed for pain. - Follow-up culture results- bcx no growth after 48 hrs in 2 bottles #Constipation #s/p lap cholecystectomy small bowel ileus -Last BM was 1-2 days prior to admission. 6 days with no BM. Denies abdominal pain but abdomen is very distended. -06/23/25 KUB shows mild to moderate small bowel ileus Plan - Bowel regimen: colase 250 mg PO QDAY, senna/docusate 1 tab p.o. twice daily, milk of mag supp prn, MiraLAX 34gm p.o. daily, Movantik 5 mg x 1. - encourage ambulation - PT referral #History of embolic strokes Brain MRI on 09/25/2020 showed multiple small infarcts in the right occipital lobe and right temporal lobes Patient has residual left-sided weakness TRENT on 09/27/2020 showed small left atrial appendage thrombus and patent foramen ovale Plan: - Hold home Eliquis for now. - Resume June 24, 2025 #Insulin-dependent diabetes mellitus Patient presented with a glucose of 217. Takes short and long-acting insulin as well as Farxiga, pioglitazone at home -A1c of 7.8 on 03/30/2025 Plan - Continue insulin sliding scale with Accu-Cheks. - Target blood sugar 140-180 while hospitalized. #?Osteoporosis Medication LXX mg p.o. q. weekly, new DEXA scan results on EHR -Continue to follow-up outpatient PCP #CHARITY (resolve) Creatinine of 1.5, BUN 16 May be secondary to dehydration versus hypotension Patient received a liter of fluid in the ED Plan - Most likely secondary to prerenal azotemia from poor oral intake. Hospital management: Lines: peripheral IV Diet: Diabetic clear liquid diet advanced as tolerated Bowel: Milk of Mag and docusate GI prophylaxis: n/A DVT prophylaxis: Held eliquis Disposition: MedSurg, started on cefoxitin and surgery consulted for acute calculous cholecystitis. CODE STATUS: Full code Patient assessed under supervision of attending physician and senior resident Dr. Kingsley PGY-2 Flor Hernadez MD PGY-1, Internal Medicine Please note: this document was transcribed using voice recognition technology; minor inaccuracies may be present. Attending Provider Attestation/Addendum I, Skylar Blancas DO, attest that I was physically present for the [place]son portions of the service and evaluated the patient with the resident and I reviewed and discussed the case with the resident and agree with the resident's findings and plans of care as documented above Patient seen and evaluated this AM. He states he has mild bloating and has not had a BM since surgery. Incisions are Clean, dry and intact. Tolerating diet. Denies fevers, chills, shortness of breath or chest pain. KUB shows mild small bowel ileus. Will start on senna/docusate BID with miralax. Enema has also been ordered. Patient states he is starting to have an urge for BM. Encouraged ambulation. He is to complete IV abx today. Anticipate DC within next 24h if pt is able to have BM.
--- NOTE | 2025-06-23 10:51 | XR_ITS ---
Examination: Abdomen AP single view Technique: AP portable supine abdomen, single view Exam date and time: June 23, 2025, 1222 hours INDICATION: Constipation beginning 4 days ago. FINDINGS: Mild air and stool throughout the colon Small bowel ileus with multiple air distended small bowel loops in the left abdomen Surgical clips upper right abdomen No free air IMPRESSION: Mild to moderate small bowel ileus
--- NOTE | 2025-06-23 13:49 | PD.SURPROG ---
Documentation for date of: 06/23/25 Subjective Subjective Brief History: 70M with HTN, HLD, DMII, embolic stroke with left-sided weakness in 2020, left atrial thrombus on eliquis (last dose 06/18 in the evening) who presented with abdominal pain. Pt reports after eating he developed severe epigastric and RUQ pain, which he never had before and did not improve with tums prompting him to seek care in ER. He denies any nausea, fever or diarrhea and reports that pain is currently 7/10 from 04/17 and he is feeling hungry. Workup indicates acute cholecystitis PMH: HTN, HLD, DMII, embolic stroke with left-sided residual weakness, atrial thrombus PSHx: Remote appendectomy Meds: includes eliquis 5mg BID (last dose 06/18 in the evening), janiva, metformin, trulicity, metformin Allergies: Latex and adhesive Social hx: uses a wheelchair due to left side weakness Narrative: Pt reported severe pain this morning but feeling better this afternoon, no nausea, passing gas but has not yet had a BM, tolerating clears, labs overall normal and remaining afebrile Exam Vital Signs Temp Pulse Resp BP Pulse Ox O2 Del Method O2 Flow Rate 96.5 F L 102 H 16 125/72 944 H Room Air 2 06/23/25 12:00 06/23/25 12:00 06/23/25 12:06/23/25 12:06/23/25 12:00 06/23/25 12:00 06/22/25 09:05 Constitutional Constitutional: no acute distress Routine Respiratory Exam Respiratory: Present no resp distress Results Results: Laboratory Laboratory results: results reviewed Assessment & Plan Plan 70M with HTN, HLD, DMII, embolic stroke with left-sided weakness in 2020, left atrial thrombus on eliquis (last dose 06/18 in the evening) presenting with signs and symptoms of acute cholecytitis s/p lap srini 06/22, gradually recovering DM diet Continue bowel regimen PROCEDURES: Procedures Laparoscopic cholecystectomy
--- NOTE | 2025-06-23 16:05 | PC.NURSE ---
Patient's daughter at bedside stated that following physical therapy session, the patient became hypotensive and was pale. Patient's daughter also reported the patient's oxygen saturation was sustaining 8u9%. I put the patient on 4L NC. the patient is now at 98%o2. Retook blood pressure as well and obtained 115/71
[2025-06-23] MEDS: NALOXEGOL OXALATE 25 MG TABLET (NON-FORMULARY) PO (17:25)
[2025-06-23] MEDS: ATORVASTATIN CALCIUM 10 MG TABLET 40 MG PO (21:10)
[2025-06-24] VITALS (7 sets, daily range): BP systolic 100–126; BP diastolic 62–79; PULSE 82–104; RESP 17–20; TEMP 36.4–36.6; O2SAT 90–94; BMI 12.0
[2025-06-24 06:16] LABS: Basophils # (Auto) 0.0 Thou/mm3 (0.0-0.2); Basophils % (Auto) 0 % (0-2.5); Eosinophils # (Auto) 0.1 Thou/mm3 (0.0-0.5); Eosinophils % (Auto) 1 % (0-10); Hematocrit 29.3 % (41.0-53.0); Hemoglobin 9.9 g/dL (13.5-16.0); Immature Granulocytes Auto 0.02 Thou/mm3 (0.00-0.00); Lymphocytes # (Auto) 1.0 Thou/mm3 (1.0-4.8); Lymphocytes % (Auto) 13 % (10-50); Mean Corpuscular HGB Conc 33.8 g/dl (31.0-37.0); Mean Corpuscular Hemoglobin 28.4 pg (25.0-35.0); Mean Corpuscular Volume 84 fL (80-100); Monocytes # (Auto) 0.9 Thou/mm3 (0.0-0.8); Monocytes % (Auto) 11 % (0-12); Neutrophils # (Auto) 5.8 Thou/mm3 (1.8-7.7); Neutrophils % (Auto) 74 % (37-80); Nucleated Red Blood Cell # 0.00 Thou/mm3 (0.00-0.00); Nucleated Red Blood Cell % 0 /100 WBC (0); Platelet Count 257 Thou/mm3 (140-440); RDW Standard Deviation 45.1 fL (35.1-43.9); Red Blood Count 3.49 Miln/mm3 (4.50-5.90); White Blood Count 7.7 Thou/mm3 (3.8-10.6)
[2025-06-24 06:39] LABS: Alanine Aminotransferase 233 U/L (10-49); Albumin, Serum 3.5 gm/dL (3.4-4.8); Albumin/Globulin Ratio 1.3 (1.2-2.2); Alkaline Phosphatase 137 U/L (46-116); Anion Gap 9 (7-16); Aspartate Amino Transferase 145 U/L (0-34); BUN/Creatinine Ratio 15 Ratio (12-20); Bilirubin,Total 1.1 mg/dL (0.3-1.2); Blood Urea Nitrogen 16 mg/dL (9-23); Calcium 8.0 mg/dL (8.3-10.6); Calcium (Corrected) 8.4 mg/dL (8.5-10.1); Carbon Dioxide 26.6 mMol/L (20.0-31.0); Chloride 103 mMol/L (98-107); Creatinine (Component) 1.1 mg/dL (0.6-1.3); Estimated Creatinine Clearance 57.4 mL/min (>60); Globulin 2.8 gm/dL (2.3-3.5); Glucose 184 mg/dL (74-106); Osmolality,Calculated 283 (275-295); Potassium 4.0 mMol/L (3.4-5.1); Sodium 139 mMol/L (136-145); Total Protein 6.3 gm/dL (5.7-8.2); eGFR > 60 See Note
[2025-06-24] MEDS: POLYETHYLENE GLYCOL 17 GM PACKET 34 GM PO (08:51)
[2025-06-24] MEDS: DOCUSATE SOD 250 MG CAPSULE PO (08:52)
[2025-06-24] MEDS: SENNA/DOCUSATE SOD 1 TAB TABLET PO ×2 (08:52→20:26)
[2025-06-24 11:05] LABS: Hematocrit 29.5 % (41.0-53.0); Hemoglobin 9.8 g/dL (13.5-16.0)
[2025-06-24] MEDS: INSULIN LISPRO (AdmeLOG) 1 UNIT/0.01 ML UNIT SC ×3 (11:55→20:27)
--- NOTE | 2025-06-24 12:29 | ESPR_ITS ---
<Statement entered by Bud Kingsley MD - 06/24/25 15:16> No acute overnight events. Seen and examined at bedside and patient resting comfortably in bed. Noted to have 3 bowel movements after not having had 1 since being admitted. Denies any nausea, vomiting, significant abdominal pain. Vital signs stable though slightly tachycardic. CBC does note a drop in hemoglobin from 12.7 to 9.9 and repeat showed hemoglobin of 9.8. Despite being postop day 2, drop in hemoglobin significant compared to estimated blood loss from procedure and so we will order FOBT and if positive will consult GI. CHEM panel showing improved LFTs and alk phos. Will follow-up with FOBT results. ----- Note reviewed and agree with care plan as documented. Please refer to the note below for further details. Plan discussed with attending physician Dr. Magalis Kingsley MD PGY-2 Internal Medicine Documentation for date of: 06/24/25 Subjective Subjective Interval history: Overnight patient had 3 loose bowel movement with no melena or fresh blood noted. The patient seen examined at bedside. Reports improved bloatedness and abdominal discomfort and denies nausea, vomiting, fever, chills and diaphoresis. Yesterday during PT evaluation patient had episode of lightheadedness upon standing for which patient recovered quickly and reported feeling fine. In regards to vital signs patient has been tachycardic, with no fever or leukocytosis. CBC noted downtrending hemoglobin 9.9 hematocrit 29.3 with repeat H&H 9.8/29.5. Will reassess orthostatic vitals. Will order FOBT and if positive will consult gastroenterology Exam Vital Signs Temp Pulse Resp BP Pulse Ox O2 Del Method O2 Flow Rate 97.5 F 104 H 20 105/67 94 L Room Air 2 06/24/25 11:59 06/24/25 11:59 06/24/25 11:59 06/24/25 11:59 06/24/25 11:59 06/24/25 11:59 06/23/25 18:00 Narrative Exam General: Awake and in no acute distress. Conversational, mildly pale Neurologic: GCS 15. Alert and oriented x3, patient able to move all 4 extremities. HEENT: Normocephalic, atraumatic, mucous membranes moist. Pupils reactive to light. Heart: Regular rate and rhythm, normal S1 and S2, no murmurs. Lungs: Clear to auscultation bilaterally with no wheezing or crackles. Abdomen: Mildly distended. No guarding or rebound tenderness. Extremities: 4 out of 5 strength in the left upper and lower extremity. No edema. 2+ radial and dorsalis pedis pulses bilaterally. Skin: Warm. Dry. No rash or ecchymoses. Objective Labs 06/24/25 10:47 06/24/25 05:18 Labs: Laboratory Results - last 24 hr 06/24/25 06/24/25 05:18 10:47 WBC 7.7 RBC 3.49 L Hgb 9.9 L D 9.8 L Hct 29.3 L 29.5 L MCV 84 MCH 28.4 MCHC 33.8 RDW Std Deviation 45.1 H Plt Count 257 D Neut % (Auto) 74 Lymph % (Auto) 13 [place] % (Auto) 11 Eos % (Auto) 1 Baso % (Auto) 0 Neut # (Auto) 5.8 Lymph # (Auto) 1.0 [place] # (Auto) 0.9 H Eos # (Auto) 0.1 Baso # (Auto) 0.0 Immature Gran # (Auto) 0.02 H Absolute Nucleated RBC 0.00 Immature Gran % 0 Nucleated RBC % 0 Sodium 139 Potassium 4.0 D Chloride 103 Carbon Dioxide 26.6 Anion Gap 9 BUN 16 Creatinine 1.1 Estim Creat Clear Calc 57.4 L eGFR > 60 BUN/Creatinine Ratio 15 Glucose 184 H Calculated Osmolality 283 Calcium 8.0 L Corrected Calcium 8.4 L Total Bilirubin 1.1 AST 145 H ALT 233 H Alkaline Phosphatase 137 H D Total Protein 6.3 Albumin 3.5 D Globulin 2.8 Albumin/Globulin Ratio 1.3 Quality Measures Quality Measures VTE prophylaxis Advance care planning discussed with:: patient and child Assessment & Plan Assessment Current Active Medications: Generic Name Dose Route Start Last Admin Trade Name Freq PRN Reason Stop Dose Admin Allopurinol 200 mg 06/20/25 09:00 06/24/25 08:52 Allopurinol 100 Mg Tablet PO 07/20/25 08:59 200 mg DAILY DAREN Administration Atorvastatin Calcium 40 mg 06/19/25 21:00 06/23/25 21:10 Atorvastatin Calcium 10 Mg Tablet PO 07/19/25 20:59 40 mg HS DAREN Administration Dextrose 25 ml 06/19/25 09:10 Dextrose 50%-Water Inj 50 Ml Syringe IV 07/19/25 09:09 Q15MIN PRN BG 50-70 responsive npo pt Dextrose 50 ml 06/19/25 09:10 Dextrose 50%-Water Inj 50 Ml Syringe IV 07/19/25 09:09 Q15MIN PRN BG <50 OR BG <70 & pt unresponsive Docusate Sodium 250 mg 06/23/25 09:00 06/24/25 08:52 Docusate Sod 250 Mg Capsule PO 07/23/25 08:59 250 mg QDAY DAREN Administration Protocol Glucagon 1 mg 06/19/25 09:10 Glucagon Inj 1 Mg Vial IM Q15MIN PRN BG <70, and no IV access Insulin Human Lispro 0 unit 06/23/25 07:30 06/24/25 11:55 Insulin Lispro (Admelog) 1 Unit/0.01 Ml Unit SC 07/23/25 07:29 2 unit ACHS DAREN Administration Protocol Magnesium Hydroxide 30 ml 06/23/25 10:20 Milk Of Magnesia Susp 30 Ml Udc PO 07/23/25 10:29 QDAY PRN CONSTIPATION Protocol Oxycodone HCl 5 mg 06/23/25 09:01 Oxycodone Hcl 5 Mg Ir Tab PO 06/28/25 09:00 Q4H PRN PAIN SCALE 4-10(Mod-Sev Polyethylene Glycol 34 gm 06/23/25 10:30 06/24/25 08:51 Polyethylene Glycol 17 Gm Packet PO 07/23/25 10:29 34 gm QDAY DAREN Administration Sennosides 1 tab 06/23/25 11:00 06/24/25 08:52 Senna/Docusate Sod 1 Tab Tablet PO 07/23/25 10:59 1 tab BID DAREN Administration Protocol Plan Patient is a 70-year-old male with past medical history of primary hypertension, hyperlipidemia, embolic stroke with left-sided residual weakness in 2020, left atrial appendage thrombus, and PFO 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 He was found to have acute calculous cholecystitis on abdominal CT with gallbladder wall thickening. #Acute calculous cholecystitis s/p laparoscopic cholecystectomy POD 2 #Transaminitis (improving) #Leukocytosis (resolve) Patient presented with midepigastric and right upper quadrant pain after eating dinner T. bili normal, makes choledocholithiasis or ascending cholangitis less likely Patient is afebrile and not encephalopathic AST 234->73 , ALT 489->280. Alk phos 159->123 WBC 12.3 likely secondary to infection versus acute phase 06/22-Laparoscopic cholecystectomy Blood culture no growth after 48 hrs in 2 bottles Continue Cefoxitin 2 g every 8 hours ( 06/19-06/23) Plan: -Surgery consulted - Morphine 4 mg IV every 4 hours as needed for pain. #?Acute blood anemia #?GI bleed s/P LAP cholecystectomye POD2 DDX: Postoperative Hemorrhage VS Intraoperative Bleeding vs Postoperative Fluid Shifts The patient presents with tachycardia following laparoscopic cholecystectomy, but remains afebrile and shows no leukocytosis. On physical examination, the patient appears pale, but there is no guarding or rigidity on palpation. The patient reports regular bowel movements without any signs of melena or hematochezia.There is a significant drop in hemoglobin and hematocrit, from an initial hemoglobin of 12.7 to 9.8 and hematocrit of 38.5 to 29.3, raising concern for a possible GI bleed. However, the patient does not exhibit any symptoms of melena, and their stool is normal today. He has also reported severe dizziness and lightheadedness upon standing, which occurred during physical therapy. This may be suggestive of orthostatic hypotension, possibly due to fluid shifts, blood loss, or postoperative recovery. Given the post-operative context of laparoscopic cholecystectomy and the clinical course, there is concern for possible postoperative hemorrhage. Despite the drop in hemoglobin, the patient remains clinically stable at this time. Plan - Orthostatic vitals, - FOBT, pending - Will consult GI if FOBT is positive #Constipation (resolve) #s/p lap cholecystectomy small bowel ileus -Last BM was 1-2 days prior to admission. 6 days with no BM. Denies abdominal pain but abdomen is very distended. -06/23/25 KUB shows mild to moderate small bowel ileus - 06/24/25 DC colase 250 mg PO QDAY Plan - Bowel regimen: senna/docusate 1 tab p.o. twice daily, milk of mag supp prn, MiraLAX 34gm p.o. daily - encourage ambulation - PT referral #History of embolic strokes Brain MRI on 09/25/2020 showed multiple small infarcts in the right occipital lobe and right temporal lobes Patient has residual left-sided weakness TRENT on 09/27/2020 showed small left atrial appendage thrombus and patent foramen ovale Plan: - Hold home Eliquis for now due to suspected GIB #Insulin-dependent diabetes mellitus Patient presented with a glucose of 217. Takes short and long-acting insulin as well as Farxiga, pioglitazone at home -A1c of 7.8 on 03/30/2025 Plan - Continue insulin sliding scale with Accu-Cheks. - Target blood sugar 140-180 while hospitalized. #?Osteoporosis Home medication alendronate 70mg p.o.weekly, new DEXA scan results on EHR -Continue to follow-up outpatient PCP #CHARITY (resolve) Creatinine of 1.5, BUN 16 May be secondary to dehydration versus hypotension Patient received a liter of fluid in the ED Plan - Most likely secondary to prerenal azotemia from poor oral intake. Hospital management: Lines: peripheral IV Diet: Diabetic clear liquid diet advanced as tolerated Bowel: Milk of Mag and senna/docusate GI prophylaxis: n/A DVT prophylaxis: Held eliquis Disposition: MedSurg, s/ lap srini CODE STATUS: Full code Patient assessed under supervision of attending physician and senior resident Dr. Kingsley PGY-2 Flor Hernadez MD PGY-1, Internal Medicine Please note: this document was transcribed using voice recognition technology; minor inaccuracies may be present. Attending Provider Attestation/Addendum Marilu, Skylar Blancas DO, attest that I was physically present for the wilson portions of the service and evaluated the patient with the resident and I reviewed and discussed the case with the resident and agree with the resident's findings and plans of care as documented above Patient seen eval this a.m. He states that he was able to have 5 bowel movements overnight. He is noted to have a drop in hemoglobin from 12.7-9.9. However, per documentation, no blood was noted in the stool. Repeat hemoglobin also noted to be 9.8. Daughter at bedside states that patient has been tachycardic since yesterday. There was an episode of orthostatic hypotension when patient tried to sit up at the edge of the bed during which he became very tachycardic, dizzy and diaphoretic. Will also order stool occult and monitor volume status closely. Abdomen is soft and incisions are clean, dry and intact. Patient denies any fevers or chills otherwise. Will continue to monitor H&H closely. Patient has otherwise been tolerating diet well. He denies any nausea or vomiting.
[2025-06-24] MEDS: ATORVASTATIN CALCIUM 10 MG TABLET 40 MG PO (20:24)
--- NOTE | 2025-06-24 21:55 | PD.IMCONS ---
HPI Data of Consult Requesting Physician: Skylar Blancas DO Primary Care Provider: Sin St MD Consult Narrative Reason for consult: Drop in hemoglobin hematocrit History of present illness: 70 years old male admitted on 06/19/2025 with a right upper quad abdominal pain CT scan imaging and ultrasound of the right upper quadrant showed acute calculous cholecystitis patient has undergone on 06/22/2025 cholecystectomy He is presenting hemoglobin hematocrit 15.1 and 46.5 as of yesterday the hemoglobin hematocrit was 12.7 and 38.5 and today it was 9.8 and 29.5 I have been consulted FOBT has been positive No history of any clarissa hematemesis or hematochezia Patient does take Eliquis for underlying left atrial thrombus has a history of CVA with left-sided residual motor weakness hypertension and hyperlipidemia cc:: cc: Skylar Blancas DO Review of Systems Review of Systems Systems Reviewed: All systems reviewed, normal except as documented Past Medical History Surgical History OTHER SURGICAL HX: As in the history of present illness Meds Home Medications and Allergies Home Medications ?Medication ?Instructions ?Recorded ?Confirmed ?Type ascorbic acid (vitamin C) 1,000 mg 1,000 mg PO DAILY 09/22/20 06/19/25 History tablet (Vitamin C) metformin 1,000 mg tablet 1,000 mg PO BID 09/22/20 06/19/25 History alendronate 70 mg tablet 70 mg PO QWEEK 04/09/23 06/19/25 History allopurinol 100 mg tablet 200 mg PO QDAY 04/09/23 06/19/25 History hydroxyzine HCl 25 mg tablet 25 mg PO [id number] PRN Itching 04/09/23 06/19/25 History loratadine 10 mg tablet 10 mg PO QDAY 04/09/23 06/19/25 History acetaminophen 325 mg tablet 650 mg PO Q4H PRN pain 06/19/25 06/19/25 History (Tylenol) calcium carb-ergocalciferol (vit 1 tab PO BID 06/19/25 06/19/25 History D2) 600 mg calcium-200 unit tablet dapagliflozin propanediol 10 mg 10 mg PO DAILY 06/19/25 06/19/25 History tablet (Farxiga) dulaglutide 1.5 mg/0.5 mL 1.5 mg subcut QWEEK 06/19/25 06/19/25 History subcutaneous pen injector (Trulicity) insulin degludec 200 unit/mL (3 18 unit subcut DAILY 06/19/25 06/19/25 History mL) subcutaneous pen (Tresiba FlexTouch U-200 insulin) pioglitazone 30 mg tablet 30 mg PO DAILY 06/19/25 06/19/25 History rosuvastatin 40 mg tablet 40 mg PO HS 06/19/25 06/19/25 History triamcinolone acetonide 0.5 % 1 applic topical BID 06/19/25 06/19/25 History topical ointment Allergies Allergy/AdvReac Type Severity Reaction Status Date / Time adhesive tape AdvReac Mild Rash Verified 06/19/25 02:14 latex AdvReac Mild Rash Verified 06/19/25 02:14 Exam Vital Signs Temp Pulse Resp BP Pulse Ox O2 Del Method O2 Flow Rate 97.8 F 100 18 106/69 90 L Room Air 2 06/24/25 20:00 06/24/25 20:00 06/24/25 20:00 06/24/25 20:00 06/24/25 20:00 06/24/25 20:00 06/23/25 18:00 Constitutional Comments: Chronically ill-appearing Routine Respiratory Exam Comments: Normal to auscultation Routine Abdominal Exam Comments: Positive bowel sounds Results Labs 06/24/25 10:47 06/24/25 05:18 Labs: Short CBC 06/24/25 06/24/25 Range/Units 05:18 10:47 WBC 7.7 (3.8-10.6) Thou/mm3 Hgb 9.9 L D 9.8 L (13.5-16.0) g/dL Hct 29.3 L 29.5 L (41.0-53.0) % Plt Count 257 D (140-440) Thou/mm3 BMP 06/24/25 05:18 Sodium 139 Potassium 4.0 D Chloride 103 Carbon Dioxide 26.6 BUN 16 Creatinine 1.1 Glucose 184 H Calcium 8.0 L Liver Function 06/24/25 Range/Units 05:18 Total Bilirubin 1.1 (0.3-1.2) mg/dL AST 145 H (0-34) U/L ALT 233 H (10-49) U/L Alkaline Phosphatase 137 H D (46-116) U/L Albumin 3.5 D (3.4-4.8) gm/dL Assessment and Plan Additional Assessment & Plan Additional Plan: # Significant drop in hemoglobin hematocrit Plan N.p.o. midnight tonight except p.o. meds Initial test of choice fiberoptic upper endoscopy with possible therapeutic intervention Consent obtained Procedure tentatively scheduled for tomorrow Will decide after endoscopy if any further GI evaluation necessary such as colonoscopy as patient had recent surgical intervention Other medical problems include Left atrial thrombus on Eliquis Embolic stroke with residual left-sided motor weakness Essential hypertension Hyperlipidemia Thank you for the opportunity to participate in the care of this
[2025-06-25] VITALS (15 sets, daily range): BP systolic 100–127; BP diastolic 58–73; PULSE 86–100; RESP 17–94; TEMP 36.1–37.4; O2SAT 90–95; BMI 11.0
--- NOTE | 2025-06-25 00:40 | PC.NURSE ---
Patient does not want to sign consent until his and daughter arrive on the unit.
[2025-06-25 06:01] LABS: Basophils # (Auto) 0.0 Thou/mm3 (0.0-0.2); Basophils % (Auto) 1 % (0-2.5); Eosinophils # (Auto) 0.2 Thou/mm3 (0.0-0.5); Eosinophils % (Auto) 3 % (0-10); Hematocrit 27.2 % (41.0-53.0); Hemoglobin 9.1 g/dL (13.5-16.0); Immature Granulocytes Auto 0.05 Thou/mm3 (0.00-0.00); Lymphocytes # (Auto) 1.8 Thou/mm3 (1.0-4.8); Lymphocytes % (Auto) 23 % (10-50); Mean Corpuscular HGB Conc 33.5 g/dl (31.0-37.0); Mean Corpuscular Hemoglobin 28.3 pg (25.0-35.0); Mean Corpuscular Volume 85 fL (80-100); Monocytes # (Auto) 1.1 Thou/mm3 (0.0-0.8); Monocytes % (Auto) 14 % (0-12); Neutrophils # (Auto) 4.7 Thou/mm3 (1.8-7.7); Neutrophils % (Auto) 60 % (37-80); Nucleated Red Blood Cell # 0.00 Thou/mm3 (0.00-0.00); Nucleated Red Blood Cell % 0 /100 WBC (0); Platelet Count 264 Thou/mm3 (140-440); RDW Standard Deviation 45.2 fL (35.1-43.9); Red Blood Count 3.21 Miln/mm3 (4.50-5.90); White Blood Count 7.8 Thou/mm3 (3.8-10.6)
[2025-06-25 06:33] LABS: Alanine Aminotransferase 176 U/L (10-49); Albumin, Serum 3.4 gm/dL (3.4-4.8); Albumin/Globulin Ratio 1.3 (1.2-2.2); Alkaline Phosphatase 138 U/L (46-116); Anion Gap 11 (7-16); Aspartate Amino Transferase 97 U/L (0-34); BUN/Creatinine Ratio 13 Ratio (12-20); Bilirubin,Total 0.9 mg/dL (0.3-1.2); Blood Urea Nitrogen 13 mg/dL (9-23); Calcium 7.7 mg/dL (8.3-10.6); Calcium (Corrected) 8.2 mg/dL (8.5-10.1); Carbon Dioxide 26.9 mMol/L (20.0-31.0); Chloride 102 mMol/L (98-107); Creatinine (Component) 1.0 mg/dL (0.6-1.3); Estimated Creatinine Clearance 63.1 mL/min (>60); Globulin 2.6 gm/dL (2.3-3.5); Glucose 169 mg/dL (74-106); Osmolality,Calculated 283 (275-295); Potassium 3.5 mMol/L (3.4-5.1); Sodium 140 mMol/L (136-145); Total Protein 6.0 gm/dL (5.7-8.2); eGFR > 60 See Note
[2025-06-25] MEDS: POLYETHYLENE GLYCOL 17 GM PACKET 34 GM PO (09:34)
[2025-06-25] MEDS: SENNA/DOCUSATE SOD 1 TAB TABLET PO ×2 (09:34→20:45)
--- NOTE | 2025-06-25 13:24 | ESPR_ITS ---
<Statement entered by Bud Kingsley MD - 06/25/25 14:43> No acute overnight events. Seen and examined at bedside and resting comfortably in bed. States abdominal pain is well-controlled with current regimen. Otherwise states that he does feel short of breath at times but no chest pain. Vital signs stable. CBC showing downtrending hemoglobin and CHEM panel largely unremarkable and BUN noted be normal. Pending EGD today and will follow-up on results and GI recommendations. Started on PPI BID. ----- Note reviewed and agree with care plan as documented. Please refer to the note below for further details. Plan discussed with attending physician Dr. Arlene Kingsley MD PGY-2 Internal Medicine Documentation for date of: 06/25/25 Subjective Subjective Interval history: Acute events overnight. Patient seen and examined at bedside. Vital stable saturating well on room air. Patient does report abdominal discomfort was mainly on the epigastric area. Denies nausea, vomiting dizziness. Labs reviewed and noted downtrending H&H. No hematemesis, no black bloody bowel movement or melena noted. CHEM panel no leukocytosis, with improvement of LFTs and alkaline phosphate. GI is consulted, n.p.o. after midnight except p.o. meds, possible EGD tomorrow. Exam Vital Signs Temp Pulse Resp BP Pulse Ox O2 Del Method O2 Flow Rate 97.4 F 94 18 107/64 95 Room Air 2 06/25/25 11:53 06/25/25 11:53 06/25/25 11:53 06/25/25 11:53 06/25/25 11:53 06/25/25 11:53 06/23/25 18:00 Narrative Exam General: Awake and in no acute distress. Conversational, mildly pale Neurologic: GCS 15. Alert and oriented x3, patient able to move all 4 extremities. HEENT: Normocephalic, atraumatic, mucous membranes moist. Pupils reactive to light. Heart: Regular rate and rhythm, normal S1 and S2, no murmurs. Lungs: Clear to auscultation bilaterally with no wheezing or crackles. Abdomen: Mildly distended. No guarding or rebound tenderness. Extremities: 4 out of 5 strength in the left upper and lower extremity. No edema. 2+ radial and dorsalis pedis pulses bilaterally. Skin: Warm. Dry. No rash or ecchymoses. Objective Labs 06/26/25 05:24 06/26/25 05:24 Labs: Laboratory Results - last 24 hr 06/25/25 06/25/25 05:44 11:01 WBC 7.8 RBC 3.21 L Hgb 9.1 L Hct 27.2 L MCV 85 MCH 28.3 MCHC 33.5 RDW Std Deviation 45.2 H Plt Count 264 Neut % (Auto) 60 Lymph % (Auto) 23 [place] % (Auto) 14 H Eos % (Auto) 3 Baso % (Auto) 1 Neut # (Auto) 4.7 Lymph # (Auto) 1.8 [place] # (Auto) 1.1 H Eos # (Auto) 0.2 Baso # (Auto) 0.0 Immature Gran # (Auto) 0.05 H Absolute Nucleated RBC 0.00 Immature Gran % 1 H Nucleated RBC % 0 Sodium 140 Potassium 3.5 D Chloride 102 Carbon Dioxide 26.9 Anion Gap 11 BUN 13 Creatinine 1.0 Estim Creat Clear Calc 63.1 eGFR > 60 BUN/Creatinine Ratio 13 Glucose 169 H Calculated Osmolality 283 Calcium 7.7 L Corrected Calcium 8.2 L Total Bilirubin 0.9 AST 97 H ALT 176 H Alkaline Phosphatase 138 H Total Protein 6.0 Albumin 3.4 Globulin 2.6 Albumin/Globulin Ratio 1.3 Blood Type AB Positive Antibody Screen NEGATIVE Blood Bank Wristband ID Yes Quality Measures Quality Measures VTE prophylaxis Advance care planning discussed with:: patient Assessment & Plan Assessment Current Active Medications: Generic Name Dose Route Start Last Admin Trade Name Freq PRN Reason Stop Dose Admin Allopurinol 200 mg 06/20/25 09:00 06/25/25 09:34 Allopurinol 100 Mg Tablet PO 07/20/25 08:59 200 mg DAILY DAREN Administration Atorvastatin Calcium 40 mg 06/19/25 21:00 06/24/25 20:24 Atorvastatin Calcium 10 Mg Tablet PO 07/19/25 20:59 40 mg HS DAREN Administration Dextrose 25 ml 06/19/25 09:10 Dextrose 50%-Water Inj 50 Ml Syringe IV 07/19/25 09:09 Q15MIN PRN BG 50-70 responsive npo pt Dextrose 50 ml 06/19/25 09:10 Dextrose 50%-Water Inj 50 Ml Syringe IV 07/19/25 09:09 Q15MIN PRN BG <50 OR BG <70 & pt unresponsive Glucagon 1 mg 06/19/25 09:10 Glucagon Inj 1 Mg Vial IM Q15MIN PRN BG <70, and no IV access Insulin Human Lispro 0 unit 06/24/25 17:00 06/25/25 12:47 Insulin Lispro (Admelog) 1 Unit/0.01 Ml Unit SC 07/23/25 16:59 Not Given ACHS DAREN Protocol Magnesium Hydroxide 30 ml 06/23/25 10:20 Milk Of Magnesia Susp 30 Ml Udc PO 07/23/25 10:29 QDAY PRN CONSTIPATION Protocol Oxycodone HCl 5 mg 06/23/25 09:01 Oxycodone Hcl 5 Mg Ir Tab PO 06/28/25 09:00 Q4H PRN PAIN SCALE 4-10(Mod-Sev Polyethylene Glycol 34 gm 06/23/25 10:30 06/25/25 09:34 Polyethylene Glycol 17 Gm Packet PO 07/23/25 10:29 34 gm QDAY DAREN Administration Sennosides 1 tab 06/23/25 11:00 06/25/25 09:34 Senna/Docusate Sod 1 Tab Tablet PO 07/23/25 10:59 1 tab BID DAREN Administration Protocol Plan Patient is a 70-year-old male with past medical history of primary hypertension, hyperlipidemia, embolic stroke with left-sided residual weakness in 2020, left atrial appendage thrombus, and PFO 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 He was found to have acute calculous cholecystitis on abdominal CT with gallbladder wall thickening. #Acute calculous cholecystitis s/p laparoscopic cholecystectomy POD 3 #Transaminitis (improving) #Leukocytosis (resolve) Patient presented with midepigastric and right upper quadrant pain after eating dinner T. bili normal, makes choledocholithiasis or ascending cholangitis less likely Patient is afebrile and not encephalopathic AST 234->73 , ALT 489->280. Alk phos 159->123 WBC 12.3 likely secondary to infection versus acute phase 06/22-Laparoscopic cholecystectomy Blood culture no growth after 48 hrs in 2 bottles Continue Cefoxitin 2 g every 8 hours ( 06/19-06/23) Plan: - Surgery consulted- lap cholecystectomy 06/22 - Morphine 4 mg IV every 4 hours as needed for pain. #Acute blood anemia 2/2 #?GI bleed s/P LAP cholecystectomye POD3 DDX: Postoperative Hemorrhage VS Intraoperative Bleeding vs Postoperative Fluid Shifts The patient presents with tachycardia following laparoscopic cholecystectomy, but remains afebrile and shows no leukocytosis. On physical examination, the patient appears pale, but there is no guarding or rigidity on palpation. The patient reports regular bowel movements without any signs of melena or hematochezia.There is a significant drop in hemoglobin and hematocrit, from an initial hemoglobin of 12.7 to 9.8 and hematocrit of 38.5 to 29.3, raising concern for a possible GI bleed. However, the patient does not exhibit any symptoms of melena, and their stool is normal today. He has also reported severe dizziness and lightheadedness upon standing, which occurred during physical therapy. This may be suggestive of orthostatic hypotension, possibly due to fluid shifts, blood loss, or postoperative recovery. Given the post-operative context of laparoscopic cholecystectomy and the clinical course, there is concern for possible postoperative hemorrhage. Despite the drop in hemoglobin, the patient remains clinically stable at this time. - Orthostatic vitals (+) Plan - GI consulted, n.p.o. after midnight except p.o. meds, EGD planned for tomorrow - Started Protonix 40 mg IVP twice daily - Daily CBCs - Type and screen - Transfuse hemoglobin less than 7 #Constipation (resolving) #Small bowel ileus s/p lap srini -Last BM was 1-2 days prior to admission. 6 days with no BM. Denies abdominal pain but abdomen is very distended. -06/23/25 KUB shows mild to moderate small bowel ileus - 06/24/25 DC colase 250 mg PO QDAY Plan - Bowel regimen: senna/docusate 1 tab p.o. twice daily, milk of mag supp prn, MiraLAX 34gm p.o. daily - encourage ambulation - PT referral #History of embolic strokes Brain MRI on 09/25/2020 showed multiple small infarcts in the right occipital lobe and right temporal lobes Patient has residual left-sided weakness TRENT on 09/27/2020 showed small left atrial appendage thrombus and patent foramen ovale Plan: - Hold home Eliquis for now due to suspected GIB #Insulin-dependent diabetes mellitus Patient presented with a glucose of 217. Takes short and long-acting insulin as well as Farxiga, pioglitazone at home -A1c of 7.8 on 03/30/2025 Plan - Continue insulin sliding scale with Accu-Cheks. - Target blood sugar 140-180 while hospitalized. #?Osteoporosis Home medication alendronate 70mg p.o.weekly, new DEXA scan results on EHR -Continue to follow-up outpatient PCP #CHARITY (resolve) Creatinine of 1.5, BUN 16 May be secondary to dehydration versus hypotension Patient received a liter of fluid in the ED Plan - Most likely secondary to prerenal azotemia from poor oral intake. Hospital management: Lines: peripheral IV Diet: NPO after midnight Bowel: Milk of Mag and senna/docusate GI prophylaxis: Protonix DVT prophylaxis: Held eliquis Disposition: MedSurg, possible EGD for tomorrow CODE STATUS: Full code Patient assessed under supervision of attending physician and senior resident Dr. Kingsley PGY-2 Flor Hernadez MD PGY-1, Internal Medicine Please note: this document was transcribed using voice recognition technology; minor inaccuracies may be present. Attending Provider Attestation/Addendum I have examined the patient, reviewed labs and imaging findings, discussed the case with the resident(s), and reviewed entered orders. I agree with the plan of care as outlined in this note. Dr. Arlene MD
--- NOTE | 2025-06-25 18:10 | SUR.PHASEI ---
Pt. arrived to recovery via gurney, eyes closed, responds to verbal commands, VSS, no c/o pain or nausea at this time, report received from Amor ROSARIO.
--- NOTE | 2025-06-25 18:45 | SUR.PHASEI ---
Pt. transferred to room 373 via PEDRO rodriguez, IV saline locked, no c/o pain or nausea at this time, Adeline ROSARIO assumed care of pt.
[2025-06-25] MEDS: ATORVASTATIN CALCIUM 10 MG TABLET 40 MG PO (20:44)
[2025-06-25] MEDS: PANTOPRAZOLE 40 MG TABLET PO (20:45)
[2025-06-25] MEDS: INSULIN LISPRO (AdmeLOG) 1 UNIT/0.01 ML UNIT SC (20:47)
[2025-06-26] VITALS: BP 109/56; PULSE 84; RESP 18; TEMP 36.3; O2SAT 92
[2025-06-26 04:00] VITALS: BP 116/61; PULSE 88; RESP 15; TEMP 36.5; O2SAT 90
[2025-06-26 04:18] LABS: OBS Card Expiration Date 2026-09; OBS Card Lot # 23001; OBS Developer Lot # 23001; OBS QC OK? Yes; Occult Blood, Stool Negative (Negative)
[2025-06-26 06:10] LABS: Basophils # (Auto) 0.1 Thou/mm3 (0.0-0.2); Basophils % (Auto) 1 % (0-2.5); Eosinophils # (Auto) 0.3 Thou/mm3 (0.0-0.5); Eosinophils % (Auto) 4 % (0-10); Hematocrit 26.0 % (41.0-53.0); Immature Granulocytes Auto 0.17 Thou/mm3 (0.00-0.00); Lymphocytes # (Auto) 1.2 Thou/mm3 (1.0-4.8); Lymphocytes % (Auto) 15 % (10-50); Mean Corpuscular HGB Conc 33.8 g/dl (31.0-37.0); Mean Corpuscular Hemoglobin 28.7 pg (25.0-35.0); Mean Corpuscular Volume 85 fL (80-100); Monocytes # (Auto) 1.1 Thou/mm3 (0.0-0.8); Monocytes % (Auto) 14 % (0-12); Neutrophils # (Auto) 5.2 Thou/mm3 (1.8-7.7); Neutrophils % (Auto) 64 % (37-80); Nucleated Red Blood Cell # 0.05 Thou/mm3 (0.00-0.00); Nucleated Red Blood Cell % 1 /100 WBC (0); Platelet Count 305 Thou/mm3 (140-440); RDW Standard Deviation 45.9 fL (35.1-43.9); Red Blood Count 3.07 Miln/mm3 (4.50-5.90); White Blood Count 8.2 Thou/mm3 (3.8-10.6)
[2025-06-26 06:16] LABS: Hemoglobin 8.8 g/dL (13.5-16.0)
[2025-06-26 06:39] LABS: Alanine Aminotransferase 140 U/L (10-49); Albumin, Serum 3.2 gm/dL (3.4-4.8); Albumin/Globulin Ratio 1.2 (1.2-2.2); Alkaline Phosphatase 158 U/L (46-116); Anion Gap 7 (7-16); Aspartate Amino Transferase 78 U/L (0-34); BUN/Creatinine Ratio 13 Ratio (12-20); Bilirubin,Total 1.0 mg/dL (0.3-1.2); Blood Urea Nitrogen 13 mg/dL (9-23); Calcium 7.6 mg/dL (8.3-10.6); Calcium (Corrected) 8.2 mg/dL (8.5-10.1); Carbon Dioxide 26.3 mMol/L (20.0-31.0); Chloride 106 mMol/L (98-107); Creatinine (Component) 1.0 mg/dL (0.6-1.3); Estimated Creatinine Clearance 63.1 mL/min (>60); Globulin 2.6 gm/dL (2.3-3.5); Glucose 200 mg/dL (74-106); Osmolality,Calculated 283 (275-295); Potassium 3.7 mMol/L (3.4-5.1); Sodium 139 mMol/L (136-145); Total Protein 5.8 gm/dL (5.7-8.2); eGFR > 60 See Note
[2025-06-26] MEDS: INSULIN LISPRO (AdmeLOG) 1 UNIT/0.01 ML UNIT SC ×2 (07:16→11:20)
[2025-06-26 08:00] VITALS: BP 105/59; PULSE 85; RESP 19; TEMP 36.7; O2SAT 91
[2025-06-26] MEDS: PANTOPRAZOLE 40 MG TABLET PO (09:04)
[2025-06-26] MEDS: SENNA/DOCUSATE SOD 1 TAB TABLET PO (09:04)
--- NOTE | 2025-06-26 09:58 | PC.NURSE ---
Patients want to talk to doctors before discharge
--- NOTE | 2025-06-26 10:54 | PC.NURSE ---
Patient requesting to DC after he eats lunch.
[2025-06-26 12:00] VITALS: BP 107/59; PULSE 81; RESP 18; TEMP 36.3; O2SAT 92
--- NOTE | 2025-06-26 13:29 | ESDS_ITS ---
<Statement entered by Laura Hogan MD - 06/27/25 16:20> Patient was seen and examined at bedside. Agree on the assessnent and plan on this note. - Patient's plan and care discussed with my attending, Dr. Mary Lou Hogan MD Internal Medicine PGY-3 Planned Discharge Date 06/26/25 DS: Providers Provider Date of admission: 06/19/25 05:43 Primary care physician: Sin St MD Admitting Provider: Monica Monroy MD Attending Provider on Admission: Skylar Blancas DO Consults: 06/19/25 05:03 Consult to General Surgery Stat Comment: Cholecystitis Consulting Provider: Dina Vazquez 06/23/25 11:58 PT [Referral Physical Therapy] Urgent Comment: Physician Instructions: 06/24/25 18:48 Consult to Gastroenterology Routine Comment: Consulting Provider: Bryce Aquino Attending Provider on DC: Leodan Jacobs MD Discharging Provider: Leodan Jacobs MD Anticipated date of discharge: 06/26/25 DS: Diagnosis Problem List Completed Was Problem List Reviewed/Reconciled?: Yes Hospital Course Hospital Course Hospital course: Summary 70-year-old male with past medical history of hypertension, hyperlipidemia, embolic stroke with left-sided residual weakness in 2020, left atrial appendage thrombus, and PFO presented to the ED in the range mechanic of 06/19/2025 with chief complaint of midepigastric and right upper quadrant pain. Started around 11 PM the night before after the patient ate dinner and he described it as constant pressure and aching. The pain is not radiating and he denied nausea vomiting or diarrhea. He was found to have acute calculous cholecystitis on abdominal CT with gallbladder wall thickening. AST and ALT were elevated as well as alk phos, lipase and amylase. T. bili was normal. Surgery was consulted and the patient was started on antibiotics and given morphine for pain. Patient was admitted for acute calculous cholecystitis. ED Course: * Significant vitals on arrival: BP 102/53, remainder vitals within normal parameters * Significant labs: WBC 12.3, creatinine 1.5, glucose 217, AST 234, ALT 489, alk phos 159, amylase 203, lipase 63 * Imaging: CTAP showed acute calculous cholecystitis with gallbladder wall thickening. Gallbladder ultrasound acute calculus cholecystitis * Urine: 4+ glucose * ED intervention: Patient received a liter of fluids, 20 mg IV famotidine, 40 mg pantoprazole IV, 4 mg ondansetron IV, 4 mg morphine IV, 1 g of ceftriaxone, and 5 mg of metronidazole. Patient laparoscopic cholecystectomy on 06/22/25, was managed with pain medication and antiemetics. After patient developed small bowel ileus for which she was started on bowel regimen Colace, senna/docusate, milk of magnesium, Movantik. Patient was able to have bowel movements. However noted drop in H&H present without concern for acute blood bleeding in setting of GI bleed s/p lap srini. 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 Recommend patient to follow-up outpatient with colonoscopy for further evaluation of anemia blood loss. Patient was started on Protonix regimen. Throughout the hospital course patient other problems were managed and his condition improved remarkably with progression of hospital course. Further plan to discharge hemodynamically stable to be discharged home to self care with the following instructions. Discharge recommendation: - Follow up with PCP in 1-2 weeks, If you don't have a PCP, you can make an appointment at the [facility]: - Follow up with in 2 weeks, outpatient colonoscopy - REPEAT CBC IN 7 DAYS AT PCP - Prescribed new Protonix 40mg twice daily - Stop atorvastatin 80mg - Stop Januvia 100 - Continue rest of medications as previously prescribed - Return to the ED or call EMS is symptoms return and/or worsen Hospital Diagnoses: #Acute calculous cholecystitis s/p laparoscopic cholecystectomy POD 4 #Transaminitis (improving) #Acute blood anemia 2/2 GI bleed #History of embolic strokes #Insulin-dependent diabetes mellitus #Osteoporosis #Constipation (resolved) #Small bowel ileus s/p lap srini (resolved) #Leukocytosis (resolved) #CHARITY (resolved) Patient assessed under supervision of attending physician and senior resident Dr. Hogan PGY-3 Flor Hernadez MD PGY-1, Internal Medicine Please note: this document was transcribed using voice recognition technology; minor inaccuracies may be present. Time Spent with Patient Time attestation: Total time spent providing and/or coordinating discharge services: Time spent: Greater than 30 minutes Exam Vital Signs Temp Pulse Resp BP Pulse Ox O2 Del Method O2 Flow Rate 98.1 F 85 19 105/59 L 91 L Room Air 2 06/26/25 08:00 06/26/25 08:00 06/26/25 08:00 06/26/25 08:00 06/26/25 08:00 06/26/25 08:00 06/25/25 18:20 FiO2 4 06/25/25 18:04 Narrative Exam General: Awake and in no acute distress. Conversational, mildly pale Neurologic: GCS 15. Alert and oriented x3, patient able to move all 4 extremities. HEENT: Normocephalic, atraumatic, mucous membranes moist. Pupils reactive to light. Heart: Regular rate and rhythm, normal S1 and S2, no murmurs. Lungs: Clear to auscultation bilaterally with no wheezing or crackles. Abdomen: Mildly distended. No guarding or rebound tenderness. Extremities: 4 out of 5 strength in the left upper and lower extremity. No edema. 2+ radial and dorsalis pedis pulses bilaterally. Skin: Warm. Dry. No rash or ecchymoses. Discharge Plan Plan Patient Disposition: HOME (Self Care) Patient condition on transfer: Stable Care Plan Goals: - Follow up with PCP in 1-2 weeks, If you don't have a PCP, you can make an appointment at the [facility]: - Follow up with in 2 weeks, outpatient colonoscopy - REPEAT CBC IN 7 DAYS AT PCP - Prescribed new Protonix 40mg twice daily - Stop atorvastatin 80mg - Stop Januvia 100 - Continue rest of medications as previously prescribed - Return to the ED or call EMS is symptoms return and/or worsen Prescriptions/Referrals Prescriptions/Med Rec: New pantoprazole 40 mg Tablet,Delayed Release (Dr/Ec) 40 mg PO BID 30 Days Qty: 60 0RF Continued metformin 1,000 mg Tablet 1,000 mg PO BID ascorbic acid (vitamin C) [Vitamin C] 1,000 mg Tablet 1,000 mg PO DAILY Eliquis 5 mg tablet 5 mg PO BID Qty: 60 0RF hydroxyzine HCl 25 mg tablet 25 mg PO [id number] PRN (Reason: Itching) Patient Comments: TAKE 1 TABLET BY MOUTH EVERY 6 TO 8 HOURS FOR RASH/ITCHING loratadine 10 mg Tablet 10 mg PO QDAY alendronate 70 mg Tablet 70 mg PO QWEEK allopurinol 100 mg tablet 200 mg PO QDAY rosuvastatin 40 mg tablet 40 mg PO HS dapagliflozin propanediol [Farxiga] 10 mg tablet 10 mg PO DAILY Trulicity 1.5 mg/0.5 mL pen injector 1.5 mg SUBCUT QWEEK pioglitazone 30 mg tablet 30 mg PO DAILY triamcinolone acetonide 0.5 % ointment 1 applic TOPICAL BID Patient Comments: APPLY OINTMENT TOPICALLY TO AFFECTED AREA TWICE DAILY insulin degludec [Tresiba FlexTouch U-200] 200 unit/mL (3 mL) insulin pen 18 unit SUBCUT DAILY calcium carbonate-vitamin D2 600 mg calcium- 200 unit tablet 1 tab PO BID acetaminophen [Tylenol] 325 mg tablet 650 mg PO Q4H PRN (Reason: pain) Discontinued Januvia 100 mg Tablet 100 mg PO HS atorvastatin 80 mg Tablet 80 mg PO HS insulin glargine [Lantus U-100 Insulin] 100 unit/mL Solution 15 unit SUBCUT QAM Referrals: Sin St MD [Primary Care Provider, Family Practice] Patient/Caregiver Discharge Instructions Other Discharge Activity Instructions:: FOLLOW UP DR. AQUINO IN 2 WEEKS, OUT PATIENT COLONOSCOPY Education Materials: Preventing Surgical Site Infections Print Language: Djiboutian Stand Alone Forms: Catarina Award Info., Patient Portal Info Letter Discharge Order Discharge Orders: Discharge (Routine); Ordered 06/26/25 Ordered By: Bud Quinonez Rimookie Quality Discharge Quality Measures none MD Attestestation MD Attestation I have examined the patient, reviewed labs and imaging findings, discussed the case with the resident(s), and reviewed entered orders. I agree with the plan of care as outlined in this note. Time Spent: [address] Arlene MD
== END 2025-06-26 14:54 | disposition home or self-care (01) | DRG 418 ==
LOC: SERX 05:06 → SERHOLD 06:26 → S3SX 09:28
PROVIDERS: Specialist; Surgery; Admitting Provider Student in an Organized Health Care Education/Training Program; Emergency Provider Emergency Medicine; PCP Family Medicine; Visit Provider Internal Medicine
PROC: 0FT44ZZ Resection of Gallbladder, Percutaneous Endoscopic Approach (ICD-10-PCS; CPT 47562; principal; 2025-06-22 07:30)
PROC: (CPT 43239; principal; 2025-06-25 17:30)
DX: K80.00 Calculus of gallbladder with acute cholecystitis without obstruction (principal); I69.354 Hemiplegia and hemiparesis following cerebral infarction affecting left non-dominant side; Q21.12 Patent foramen ovale; N17.9 Acute kidney failure, unspecified; D50.0 Iron deficiency anemia secondary to blood loss (chronic); M81.0 Age-related osteoporosis without current pathological fracture; I51.3 Intracardiac thrombosis, not elsewhere classified; Z79.4 Long term (current) use of insulin; E11.65 Type 2 diabetes mellitus with hyperglycemia; E78.5 Hyperlipidemia, unspecified; I10 Essential (primary) hypertension; I95.1 Orthostatic hypotension; Z79.01 Long term (current) use of anticoagulants; Z79.83 Long term (current) use of bisphosphonates; Z79.84 Long term (current) use of oral hypoglycemic drugs; Z79.85 Long-term (current) use of injectable non-insulin antidiabetic drugs
CPT/HCPCS: 36415; 51701; 74018; 74176; 76705; 80053; 80074; 81001; 82150; 82248; 82270; 83690; 83735; 84443; 85014; 85018; 85025; 86850; 86900; 86901; 87040; 96361; 96365; 96375; 97162; 99284; A4217; A4649; J0131; J0694; J0696; J1100; J1200; J1805; J1815; J2250; J2270; J2371; J2405; J2470; J2704; J2710; J2795; J3010; J3490; J7030; J7050; A9270; J1596; J1836